=== PATIENT | male | born 1930 | race Caucasian/White ===

== ENCOUNTER 2016-07-24 20:02 | Inpatient (IN) | payer MEDICARE ==
[2016-07-24] MEDS ORDERED: NS 0.9% 1000 ML* 1,000 ML IV ONE (21:25)
[2016-07-24 21:36] LABS: Hematocrit 39 % (42-52); Mean Corpuscular HGB Conc 34 g/dl (31-36); Mean Corpuscular Hemoglobin 28 pg (27-31); Mean Corpuscular Volume 83 fL (80-94); Mean Platelet Volume 9 um3 (7.4-10.4); Red Blood Count 4.65 10^6/ul (4.0-5.4); Red Cell Distribution Width 16 % (10.5-15)
[2016-07-24] MEDS ORDERED: Aspirin EC TAB* 325 MG PO ONE (21:37)
[2016-07-24] MEDS ORDERED: Piperac/Tazob 3.375 gm in NS* 3.375 GM/100 ML BAG IVPB ONE (21:41)
[2016-07-24 21:50] LABS: BUN/Creatinine Ratio 12.2 (8-20); Calcium 9.1 mg/dL (8.6-10.3); EGFR African American 51.5 (>60); Globulin 2.9 g/dL (2-4); Total Bilirubin 0.7 mg/dL (0.2-1.0); Total Protein 6.9 g/dL (6.4-8.9)
[2016-07-24 21:53] LABS: Potassium 3.7 mmol/L (3.5-5.0)
[2016-07-24 21:54] LABS: Troponin I 0.83 ng/mL (<0.04)
[2016-07-24] MEDS: Heparin VIAL(*) 5000 UNITS/ML VIAL (FIVE THOUSAND) IV SCH (22:30)
[2016-07-24] MEDS: Heparin DRIP 25,000 UNITS(*) 25,000 UNITS/500 ML BAG IVPB SCH (22:31)
--- NOTE | 2016-07-24 22:40 | RAD ---
Indication: Shortness of breath. Single frontal view of the chest performed at 2156 hours was reviewed. Comparison is made with previous exam dated January 29, 2012. No mediastinal shift is noted. Heart is normal size and configuration. Right upper lobe and right lower lobe airspace disease is noted consistent with pneumonia. No pleural fluid is identified. IMPRESSION: Right upper lobe and right lower lobe airspace disease consistent with pneumonia.
[2016-07-24] MEDS ORDERED: Furosemide IV* 10 MG/ML VIAL (40 MG) ONE (23:35)
[2016-07-24] MEDS: Furosemide IV* 10 MG/ML VIAL (40 MG) IV SLOW PU SCH (23:41)
[2016-07-25] MEDS ORDERED: Morphine INJ* 2 MG/ML 1 ML CARPUJECT IV ONE (00:59)
[2016-07-25] MEDS ORDERED: Azithromycin IV(*) 500 MG in NS 0.9% 250 ML* 250 ML IVPB SCH (01:00)
[2016-07-25] MEDS: cefTRIAXone VIAL(*) 1,000 MG in NS 0.9% 50 ML* 50 ML IVPB SCH (02:34)
[2016-07-25 05:45] LABS: Hematocrit 39 % (42-52); Hemoglobin 12.9 g/dl (14.0-18.0); Mean Corpuscular HGB Conc 33 g/dl (31-36); Mean Corpuscular Hemoglobin 27 pg (27-31); Mean Corpuscular Volume 83 fL (80-94); Mean Platelet Volume 9 um3 (7.4-10.4); Red Blood Count 4.71 10^6/ul (4.0-5.4); Red Cell Distribution Width 16 % (10.5-15); White Blood Count 11.8 10^3/ul (3.5-10.8)
--- NOTE | 2016-07-25 07:55 | HP ---
HISTORY AND PHYSICAL: DATE OF ADMISSION: 07/24/16 CHIEF COMPLAINT: Shortness of breath. HISTORY OF PRESENT ILLNESS: The patient is an 86-year-old gentleman who had been short of breath for several days, but then increased significantly tonight. It became so bad he had to come to the ER. His has a cough that is semi-productive. He does not have any green or brown phlegm; it is mostly clear. He walked down the schmidt and has to hold on the things because he feels so unsteady. He has also been increasingly mentally confused. He has no chest pain, but he felt cold all day yesterday. He has noticed no increased weight gain and no swelling in his legs. In the ED, the patient was evaluated and found to have findings on x-ray possibly consistent with pneumonia, but an elevated BNP and elevated troponins as well. PAST MEDICAL HISTORY: BPH and TURP. CURRENT MEDICATIONS: Include: 1. PreserVision. 2. Alphagan eye drops. 3. Multivitamin. SOCIAL HISTORY: He quit tobacco in the 1970s. He has no alcohol or recreational drug use. 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 He has a common-law , Preethi Holman, who is his health care proxy. He has 2 children. REVIEW OF SYSTEMS: A 14-point review of systems was completed with the patient. All pertinent positives and negatives are in the history of present illness. Otherwise, it is negative. PHYSICAL EXAMINATION GENERAL: A pleasant gentleman lying in bed, in no acute distress. VITAL SIGNS: Blood pressure 131/79, pulse ox 91%, respiratory rate 18 breaths per minute, heart rate 100 beats per minute, and temperature 98.9 degrees. HEENT: Normocephalic, atraumatic. Pupils equal, round, and reactive to light. Mucous membranes moist. NECK: Supple. No JVD, bruits, palpable thyroid, or lymphadenopathy. CHEST: He has decreased breath sounds and crackles at the bases. CARDIOVASCULAR: S1 and S2 appreciated. Increased rate, regular rhythm. ABDOMEN: Positive bowel sound all in 4 quadrants. Soft, nontender, and nondistended. No hepatosplenomegaly. EXTREMITIES: No cyanosis, clubbing, or edema; +2 peripheral pulses bilaterally. NEURO: Alert and oriented x3. Moves all extremities. SKIN: No rashes or abnormalities. DIAGNOSTIC STUDIES/LAB DATA: Sodium 138, potassium 3.7, chloride 107, CO2 19, BUN 20, creatinine 1.64, glucose 191. Troponin 0.83. BNP 1720. WBC 12, hemoglobin 13, hematocrit 39, platelets 303. Iron 1.04. Chest x-ray was interpreted by radiology as right upper lobe and right lower lobe air space disease consistent with pneumonia. EKG shows sinus tachycardia at a rate of 114 beats per minute, normal axis, and ST depressions at V4 through V6. ASSESSMENT AND PLAN: 1. Elevated troponin: I think this may be secondary to congestive heart failure. He has an elevated BNP and his chest x-ray could be consistent with heart failure. I will place him on Lasix 40 IV daily. Get a chest thoracic echo. Do strict I's and O's and daily weights. Hopefully, he will diurese quite a bit and feel much better. 2. Respiratory failure: Could be secondary to pneumonia, although I think less likely. I will put him on Rocephin and Zithromax. Check sputum C and S, urine for Legionella, pneumococcal antigen, and monitor. 3. Benign prostatic hyperplasia: We will hold off on a Mendoza catheter for now as the patient had a lot of troubles with one last time and will only put it in if absolutely necessary, and ask Urology for their help. 4. FEN: Low-sodium diet. 5. DVT prophylaxis: Heparin drip. 6. Code status: The patient is a full code, but a DNI. TIME SPENT: Over 80 minutes were spent on this H and P, more than 40 minutes of which were spent in direct atkw-or-bohj contact with the patient, evaluation , physical exam, counseling, and coordination of care. CC: Thierno Hayes MD * [id number]/CPS #: [id number] MTDD
[2016-07-25 07:58] LABS: HDL Cholesterol 29.9 mg/dL
[2016-07-25 08:02] LABS: Troponin I 3.52 ng/mL (<0.04)
--- NOTE | 2016-07-25 09:35 | ECHO ---
Patient: BELKIS HINES [facility] Rec#: [id number] : 1930 Date: 07/25/2016 Age: 86y Height: 187.96 cm / 74.0 in Weight: 68.04 kg / 150.0 lbs Sex: M BSA: 1.92 Room#: [facility] Admit Date#: 07/24/2016 Type: Inpatient Referring: Steve Hameed MD Reading: Mitch Osoiro DO Commercial Sales Consultant: Jolie Foote [facility] Transthoracic Echocardiogram Indication: CHF BP: 113/69 HR: 94 Rhythm: NSR with PACs Findings History: CHF,right upper and lower lobe pneumonia. Currently on Bipap. Technical Comments: The study is technically limited due to patient being on BIPAP during study. Completed at 0812. Left Ventricle: The left ventricular chamber size is normal. Mild concentric left ventricular hypertrophy is observed. There are multiple regional wall motion abnormalities. There is severely decreased left ventricular systolic function. The estimated ejection fraction is 20-25%. Abnormal left ventricular diastolic function is observed. Left Atrium: The left atrium is mildly dilated. Right Ventricle: The right ventricular chamber size and systolic function are within normal limits. Right Atrium: The right atrial cavity size is normal. Aortic Valve: The aortic valve is trileaflet. There is evidence of aortic sclerosis without stenosis. There is mild aortic regurgitation. There is no evidence of aortic stenosis. Mitral Valve: The mitral valve leaflets are mildly thickened. There is mild mitral regurgitation. There is no evidence of mitral stenosis. Tricuspid Valve: The tricuspid valve leaflets are normal. There is mild to moderate tricuspid regurgitation. There is evidence of moderate pulmonary hypertension. There is no tricuspid stenosis. Pulmonic Valve: The pulmonic valve appears normal. There is trace to mild pulmonic regurgitation. There is no pulmonic stenosis. Pericardium: There is no significant pericardial effusion. Aorta: There is mild dilatation of the ascending aorta. The aortic arch is not well visualized. There is mild dilatation of the aortic root. Pulmonary Artery: The main pulmonary artery is not well visualized. Venous: Unable to accurately comment on the size collapsibility of the IVC as the patient in known to be on mechanical ventilation. In this case, BIPAP. Conclusions The left ventricular chamber size is normal. Mild concentric left ventricular hypertrophy is observed. There is severely decreased left ventricular systolic function with an estimated LV ejection fraction of 20-25%. There are multiple regional wall motion abnormalities. The left atrium is mildly dilated. The right ventricular chamber size and systolic function are within normal limits. There is mild to moderate tricuspid regurgitation. There is evidence of moderate pulmonary hypertension. No prior studies available for comparison at time of interpretation Measurements Name Value Normal Range RVIDd (AP) 2D 2.4 cm (0.9 - 2.6) RVDdMajor (2D) 3.1 cm (2.2 - 4.4) RAd ISD 4CH 4.2 cm (3.4 - 4.9) RA (A4C)W 3.3 cm (2.9 - 4.6) IVSd (2D) 1.6 cm (0.6 - 1) LVPWd (2D) 1.1 cm (0.6 - 1) LVIDd (2D) 5.1 cm (3.6 - 5.4) LVIDs (2D) 4.5 cm - LV FS (2D) 11 % (25 - 45) Aortic Annulus 2.4 cm (1.4 - 2.6) Ao root diameter (2D) 4 cm (2.1 - 3.5) Ascending Ao 3.8 cm (2.1 - 3.4) LA dimension (AP) 2D 4.2 cm (2.3 - 3.8) LAd ISD 4CH 5.1 cm (2.9 - 5.3) LA ISD 4CH W 4.5 cm (2.5 - 4.5) Name Value Normal Range LA ESV SP 4CH (A/L) 58 ml - LA ESV SP 2CH (A/L) 81 ml - LA ESV BP (A/L) 75 ml - LA ESV BP (A/L) index 38.8 ml/m2 - LA ESV SP 4CH (MOD) 55 ml - LA ESV SP 2CH (MOD) 72 ml - Name Value Normal Range MV E-wave Vmax 0.6 m/sec - MV deceleration time 82 msec - MV A-wave Vmax 0.7 m/sec - MV E:A ratio 0.88 ratio - LV septal e' Vmax 0.04 m/sec - LV lateral e' Vmax 0.05 m/sec - LV E:e' septal ratio 15 ratio - LV E:e' lateral ratio 12 ratio - Name Value Normal Range AV Vmax 1 m/sec - AV VTI 17 cm - AV peak gradient 3.86 mmHg - AV mean gradient 1.49 mmHg - LVOT Vmax 0.8 m/sec - LVOT VTI 12.7 cm - LVOT peak gradient 2.43 mmHg - LVOT mean gradient 0.88 mmHg - AR PHT 442 msec - AR peak gradient 33.33 mmHg - Name Value Normal Range TR Vmax 3.8 m/sec - TR peak gradient 58 mmHg - RVSP 60 mmHg - IVC diameter 2 cm - Name Value Normal Range PV Vmax 0.6 m/sec - PV peak gradient 1.51 mmHg -
[2016-07-25] MEDS: Furosemide IV* 10 MG/ML VIAL (40 MG) IV SLOW PU SCH (09:46)
[2016-07-25] MEDS: Aspirin Low Dose CHEW TAB* 81 MG PO SCH (09:46)
[2016-07-25] MEDS ORDERED: nitroGLYCERIN DRIP* 250 ML ONE (11:50)
--- NOTE | 2016-07-25 11:59 | PN ---
Subjective Date of Service: 07/25/16 Interval History: He denies most c/o. Objective Active Medications: Aspirin (Aspirin Low Dose Tab*) 81 mg PO DAILY [facility] Last Admin: 07/25/16 09:46 Dose: 81 mg Atorvastatin Calcium (Lipitor*) 20 mg PO 1700 [facility] Brimonidine Tartrate (Alphagan P 0.1% (Nf)) 1 drop LEFT EYE BID [facility] Furosemide (Lasix Iv*) 40 mg IV SLOW PU DAILY [facility] Last Admin: 07/25/16 09:46 Dose: 40 mg Heparin Sodium (Porcine) (Heparin Vial(*)) 0 units IV .PER PROTOCOL SLIM PRN Reason: Protocol Last Admin: 07/24/16 22:30 Dose: 5,100 units Heparin Sodium/Dextrose (Heparin Drip 25,000 Units(*)) 25,000 units in 500 mls @ 0 mls/hr IVPB .PER RATE SLIM; Per Protocol PRN Reason: Protocol Last Admin: 07/24/16 22:31 Dose: 24 mls/hr Ceftriaxone Sodium 1,000 mg/ (Sodium Chloride) 50 mls @ 200 mls/hr IVPB Q24H [facility] Last Admin: 07/25/16 02:34 Dose: 200 mls/hr Azithromycin 500 mg/ Sodium (Chloride) 250 mls @ 250 mls/hr IVPB Q24H [facility] Last Admin: 07/25/16 02:27 Dose: 250 mls/hr Nitroglycerin/Dextrose 25,000 (mcg/ IV Solution) 250 mls @ 3 mls/hr IV .( Initial Rate) SLIM; 5 MCG/MIN PRN Reason: Protocol Vital Signs 07/24/16 07/24/16 07/25/16 23:30 23:48 00:00 Temperature Pulse Rate 114 128 132 Respiratory 24 24 33 Rate Blood Pressure 154/105 174/123 (mmHg) O2 Sat by Pulse 88 82 100 Oximetry 07/25/16 07/25/16 07/25/16 00:01 00:15 00:33 Temperature Pulse Rate 133 130 129 Respiratory 29 34 29 Rate Blood Pressure 175/94 137/99 154/96 (mmHg) O2 Sat by Pulse 92 100 100 Oximetry 07/25/16 07/25/16 07/25/16 00:45 01:00 01:04 Temperature Pulse Rate 128 108 Respiratory 26 23 30 Rate Blood Pressure 175/97 140/76 (mmHg) O2 Sat by Pulse 98 97 Oximetry 07/25/16 07/25/16 07/25/16 01:15 01:30 01:35 Temperature Pulse Rate 100 99 97 Respiratory 19 19 20 Rate Blood Pressure 125/65 124/71 (mmHg) O2 Sat by Pulse 93 95 95 Oximetry 07/25/16 07/25/16 07/25/16 01:44 01:45 01:54 Temperature Pulse Rate 100 109 Respiratory 21 25 Rate Blood Pressure 138/86 132/74 (mmHg) O2 Sat by Pulse 97 100 Oximetry 07/25/16 07/25/16 07/25/16 02:00 02:06 02:26 Temperature 97.9 F Pulse Rate 133 129 123 Respiratory 24 23 23 Rate Blood Pressure 172/90 172/90 (mmHg) O2 Sat by Pulse 100 100 100 Oximetry 07/25/16 07/25/16 07/25/16 02:30 02:45 03:00 Temperature Pulse Rate 116 100 103 Respiratory 27 16 17 Rate Blood Pressure 139/60 130/90 119/71 (mmHg) O2 Sat by Pulse 100 97 99 Oximetry 07/25/16 07/25/16 07/25/16 03:13 03:30 04:00 Temperature Pulse Rate 123 99 101 Respiratory 23 16 21 Rate Blood Pressure 108/62 118/68 (mmHg) O2 Sat by Pulse 100 97 100 Oximetry 07/25/16 07/25/16 07/25/16 04:30 05:00 05:14 Temperature Pulse Rate 93 93 96 Respiratory 17 16 14 Rate Blood Pressure 119/70 118/67 (mmHg) O2 Sat by Pulse 99 96 100 Oximetry 07/25/16 07/25/16 07/25/16 05:30 06:00 06:30 Temperature Pulse Rate 90 88 93 Respiratory 15 15 15 Rate Blood Pressure 120/66 113/69 129/67 (mmHg) O2 Sat by Pulse 98 99 99 Oximetry 07/25/16 07/25/16 07/25/16 07:00 07:30 08:00 Temperature 99.9 F Pulse Rate 110 105 97 Respiratory 20 20 16 Rate Blood Pressure 138/76 139/69 128/75 (mmHg) O2 Sat by Pulse 100 100 98 Oximetry 07/25/16 07/25/16 07/25/16 08:30 09:00 09:30 Temperature Pulse Rate 127 106 57 Respiratory 22 23 25 Rate Blood Pressure 151/98 136/99 131/72 (mmHg) O2 Sat by Pulse 100 100 83 Oximetry 07/25/16 07/25/16 07/25/16 10:00 11:00 11:01 Temperature 98.5 F Pulse Rate 125 110 Respiratory 30 27 Rate Blood Pressure 161/83 157/95 (mmHg) O2 Sat by Pulse 87 91 Oximetry Oxygen Devices in Use Now: - - VapoTherm at 40 L/min Appearance: Alert, partly up in ICU bed. In good spirits. Looks comfortable. Eyes: No Scleral Icterus Neck: No Thyroid Enlargement, Masses, - - JVD at 30 degrees. Respiratory: Symmetrical Chest Expansion and Respiratory Effort, Clear to Auscultation, Clear to Percussion, - Cardiovascular: NL Sounds; No Murmurs; No JVD, No Edema, - - rapid rate Extremities: No Edema, No Clubbing, Cyanosis, - Skin: No Rash or Ulcers, No Nodules or Sclerosis, - Neurological: NL Sensation - Disoriented. Moves all limbs. No tremor. Result Diagrams: 07/25/16 04:25 07/24/16 20:16 Microbiology and Other Data: Microbiology 07/25/16 06:05 Legionella Urinary Antigen - Final Urine Negative Legionella Streptococcus pneumoniae Ag Screen - Final Negative S. pneumo Antigen Assess/Plan/Problems-Billing Assessment: - Patient Problems (1) ACS (acute coronary syndrome) Current Visit: Yes Status: Acute Code(s): I24.9 - ACUTE ISCHEMIC HEART DISEASE, UNSPECIFIED SNOMED Code(s): 948006356 Comment: ASA, statin, heparin, NTG drip, morphine ordered. Dr. Osorio to consult. Prognosis guarded due to severe cardiomyopathy. (2) Dementia Current Visit: Yes Status: Acute Code(s): F03.90 - UNSPECIFIED DEMENTIA WITHOUT BEHAVIORAL DISTURBANCE SNOMED Code(s): 07194473 Comment: Long hx progressive memory loss, confusion, worse since admission. Cannot r/o some degree of delirium. Haloperidol prn severe agitation. Morphine may help with milder sx's. (3) Glaucoma Current Visit: Yes Status: Acute Code(s): H40.9 - UNSPECIFIED GLAUCOMA SNOMED Code(s): 08275975 Comment: Continue brimonidine.
[2016-07-25] MEDS ORDERED: nitroGLYCERIN DRIP* 25,000 MCG in PREMIX* 0 ML IV SCH (12:00)
[2016-07-25] MEDS ORDERED: Furosemide IV* 10 MG/ML VIAL (40 MG) IV ONE (12:05)
--- NOTE | 2016-07-25 12:46 | CONSULT ---
Subjective Date of Service: 07/25/16 Interval History: Admission Date: 07/24/16 Provider: Hospitalist DATE OF Consult: 07/25/16 PMD: Dr. Castro CHIEF COMPLAINT: Shortness of breath. Reason for consult: Acute IL, CHF HISTORY OF PRESENT ILLNESS: Mr. Hernandez is an 86-year-old man who I was asked to evaluated by Dr. Szymanski in the ICU. He is currently agitated and unable to provide a history so the history was obtained from medical chart, patients significant other who is present (along with sister). There is no reported cardiac history. Lavelle has been dyspneic for at least several days with increased weight and clear minimally productive cough. There has been no chest pain, palpitations, syncope or edema. He was diagnosed with CHF and appropriately given IV lasix. He ruled in for ACS with serial troponins and is currently on aspirin and a heparin gtt. His daughter lives in [place] and is due to come later today. Patient is hypertensive. He has baseline confusion by can perform all ADLs PAST MEDICAL HISTORY: BPH and TURP. SOCIAL HISTORY: He quit tobacco in the 1970s. He has no alcohol or recreational drug use. 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 He has a common-law , Preethi Holman, who is his health care proxy. He has 2 children. family hx: noncontributory allergies: nkda Medications Active Medications: Aspirin (Aspirin Low Dose Tab*) 81 mg PO DAILY [facility] Last Admin: 07/25/16 09:46 Dose: 81 mg Atorvastatin Calcium (Lipitor*) 20 mg PO 1700 [facility] Brimonidine Tartrate (Alphagan P 0.1% (Nf)) 1 drop LEFT EYE BID [facility] Furosemide (Lasix Iv*) 40 mg IV SLOW PU DAILY [facility] Last Admin: 07/25/16 09:46 Dose: 40 mg Haloperidol (Haldol Tab*) 0.5 mg PO Q4H PRN PRN Reason: AGITATION - SEVERE Heparin Sodium (Porcine) (Heparin Vial(*)) 0 units IV .PER PROTOCOL SLIM PRN Reason: Protocol Last Admin: 07/24/16 22:30 Dose: 5,100 units Heparin Sodium/Dextrose (Heparin Drip 25,000 Units(*)) 25,000 units in 500 mls @ 0 mls/hr IVPB .PER RATE SLIM; Per Protocol PRN Reason: Protocol Last Admin: 07/24/16 22:31 Dose: 24 mls/hr Ceftriaxone Sodium 1,000 mg/ (Sodium Chloride) 50 mls @ 200 mls/hr IVPB Q24H [facility] Last Admin: 07/25/16 02:34 Dose: 200 mls/hr Nitroglycerin/Dextrose 25,000 (mcg/ IV Solution) 250 mls @ 3 mls/hr IV .( Initial Rate) SLIM; 5 MCG/MIN PRN Reason: Protocol Last Admin: 07/25/16 11:54 Dose: 3 mls/hr Home Medications: Brainstrong Adult (Dha) 1 tab PO DAILY 07/25/16 [History] Brimonidine P 0.1%(NF) [Alphagan P 0.1% (NF)] 1 drop LEFT EYE BID 07/25/16 [ History Confirmed 07/25/16] Multiple Vitamin [Multi Vitamin] 1 tab PO DAILY 07/25/16 [History Confirmed ] Preservision 1 tab PO BID 07/25/16 [History] Review of Systems - Measurements Intake and Output: Intake and Output Last 24 Hours 07/23/16 07/24/16 07/25/16 07/26/16 06:59 06:59 06:59 06:59 Intake Total 554 Output Total 900 250 Balance -346 -250 Weight 149 lb 4.047 oz Intake: IV Fluids 283 ABX - AZITHROMYCIN 250 NS KVO 33 IVPB 59 NS KVO 59 Heparin 212 Output: Urine 900 250 - Review of Systems Review of Systems Statement: unable to obtain Objective Vital Signs: Temp Pulse Resp BP Pulse Ox 98.5 F 110 27 157/95 91 07/25/16 11:01 07/25/16 11:00 07/25/16 11:00 07/25/16 11:00 07/25/16 11:00 Oxygen Devices in Use Now: - - VapoTherm at 40 L/min Appearance: appears ill and distressed with tachypnea and labor breathing Ears/Nose/Mouth/Throat: Clear Oropharnyx, Mucous Membranes Moist Neck: - - + jvd Respiratory: - - patient with tachypnea and increased work of breathing, no obvious rales Cardiovascular: No Edema, - - tachycardic, regular, no significant murmur Abdominal: NL Sounds; No Tenderness; No Distention Skin: No Rash or Ulcers Neurological: - - not oriented at all Laboratory Results: 07/25/16 04:25 INR (Anticoag Therapy) 1.04 (0.89-1.11) 07/24/16 20:16 APTT 130.8 seconds (26.0-36.3) H* 07/25/16 06:05 Total Bilirubin 0.70 mg/dL (0.2-1.0) 07/24/16 20:16 AST 28 U/L (13-39) 07/24/16 20:16 ALT 11 U/L (7-52) 07/24/16 20:16 Alkaline Phosphatase 67 U/L (34-104) 07/24/16 20:16 CK-MB (CK-2) 51.7 ng/mL (0.6-6.3) H 07/25/16 04:25 B-Natriuretic Peptide 1720 pg/mL (-100) H 07/24/16 20:16 Total Protein 6.9 g/dL (6.4-8.9) 07/24/16 20:16 Albumin 4.0 g/dL (3.2-5.2) 07/24/16 20:16 Globulin 2.9 g/dL (2-4) 07/24/16 20:16 Albumin/Globulin Ratio 1.4 (1-3) 07/24/16 20:16 Triglycerides 666 mg/dL 07/25/16 04:25 Cholesterol 270 mg/dL 07/25/16 04:25 LDL Cholesterol mg/dL 07/25/16 04:25 HDL Cholesterol 29.9 mg/dL 07/25/16 04:25 07/25/16 07/25/16 01:35 04:25 Troponin I 2.19 H* 3.52 H* creatinine in 2016 was 2.1 Diagnostic Imaging: cxr: + pulmonary edema TTE: LVEF 20-25% with multiple WMA, no significant valvular abnormalities note tele: no ventricular arrhythmias ekg 07/25/2016: ST, ischemic anterolateral ST depression Assessment/Plan In summary, Mr. Hernandez is an 86 year old man with baseline memory loss, remote tobacco and CKD use who presents with ADHF in the setting of an acute IL and LVEF 20-25%, cTnI 5.7 and rising. Course complicated by delirium. - Would restart bipap. Reportedly DNI status - Continue heparin gtt - Continue aspirin 81 mg PO daily - Give plavix 600 mg PO x 1 now then 75 mg PO daily (ordered) - Start nitroglycerine gtt to titrate SBP to < 130 - Continue IV PRN furosemide to keep I/O negative, trend I/O, BMP/Mg and replace lytes as needed - Hold on beta-isidoro for now - Will likely start afterload reduction soon - Would consider d/c antibiotics - Significant other and sister present indicate he would not want invasive management of his condition, will wait until daughter arrives and discuss further. - - Prognosis guarded. Thank you for allowing me to participate in the cardiovascular care of this patient. Please do not hesitate to contact me with questions or concerns.
[2016-07-25 12:50] LABS: Troponin I 5.69 ng/mL (<0.04)
[2016-07-25] MEDS ORDERED: fentaNYL* 50 MCG/ML 2 ML VIAL (100 MCG VIAL) IV SLOW PU PRN (13:12)
[2016-07-25] MEDS ORDERED: Clopidogrel TAB* 300 MG PO ONE (13:19)
[2016-07-25] MEDS ORDERED: Haloperidol INJ IV/IM* 5 MG/ML AMP IV SLOW PU PRN (14:56)
[2016-07-25] MEDS ORDERED: Haloperidol INJ IV/IM* 5 MG/ML AMP ONE (14:58)
[2016-07-25] MEDS ORDERED: Atorvastatin* 20 MG TAB PO SCH (17:00)
[2016-07-25] MEDS: fentaNYL* 50 MCG/ML 2 ML VIAL (100 MCG VIAL) IV SLOW PU PRN ×3 (17:47→23:33)
[2016-07-25] MEDS: Atorvastatin* 80 MG TAB PO SCH (17:47)
[2016-07-25] MEDS: Haloperidol INJ IV/IM* 5 MG/ML AMP IV SLOW PU PRN ×2 (19:55→23:32)
[2016-07-25] MEDS: PTO: Brimonidine P 0.1%(NF) 1 DROP BTL LEFT EYE SCH (22:33)
[2016-07-25] MEDS: Heparin DRIP 25,000 UNITS(*) 25,000 UNITS/500 ML BAG IVPB SCH (22:37)
[2016-07-26] MEDS: cefTRIAXone VIAL(*) 1,000 MG in NS 0.9% 50 ML* 50 ML IVPB SCH (02:12)
[2016-07-26] MEDS: fentaNYL* 50 MCG/ML 2 ML VIAL (100 MCG VIAL) IV SLOW PU PRN ×2 (03:52→16:41)
[2016-07-26] MEDS: Haloperidol INJ IV/IM* 5 MG/ML AMP IV SLOW PU PRN ×2 (03:52→16:41)
[2016-07-26] MEDS ORDERED: fentaNYL* 50 MCG/ML 2 ML VIAL (100 MCG VIAL) IV ONE (06:00)
[2016-07-26] MEDS ORDERED: Haloperidol INJ IV/IM* 5 MG/ML AMP IV SLOW PU ONE (06:00)
[2016-07-26 06:02] LABS: Hematocrit 35 % (42-52); Hemoglobin 11.5 g/dl (14.0-18.0); Mean Corpuscular HGB Conc 33 g/dl (31-36); Mean Corpuscular Hemoglobin 27 pg (27-31); Mean Corpuscular Volume 82 fL (80-94); Mean Platelet Volume 9 um3 (7.4-10.4); Red Blood Count 4.27 10^6/ul (4.0-5.4); Red Cell Distribution Width 16 % (10.5-15); White Blood Count 11.2 10^3/ul (3.5-10.8)
[2016-07-26 06:29] LABS: EGFR African American 44.5 (>60); EGFR Non-African American 34.6 (>60); Magnesium 1.8 mg/dL (1.9-2.7)
[2016-07-26] MEDS ORDERED: Furosemide IV* 10 MG/ML 2 ML VIAL (20 MG) ONE (06:30)
--- NOTE | 2016-07-26 07:46 | PN ---
Subjective Date of Service: 07/26/16 Interval History: Pt offers no c/o. His memory seems to be very poor. Objective Active Medications: Aspirin (Aspirin Low Dose Tab*) 81 mg PO DAILY [facility] Last Admin: 07/25/16 09:46 Dose: 81 mg Atorvastatin Calcium (Lipitor*) 80 mg PO 1700 [facility] Last Admin: 07/25/16 17:47 Dose: 80 mg Brimonidine Tartrate (Alphagan P 0.1% (Nf)) 1 drop LEFT EYE BID [facility] Last Admin: 07/25/16 22:33 Dose: 1 juarez Clopidogrel Bisulfate (Plavix Tab*) 75 mg PO DAILY [facility] Fentanyl Citrate (Fentanyl*) 25 mcg IV SLOW PU Q1H PRN PRN Reason: dyspnea, pain Last Admin: 07/26/16 03:52 Dose: 25 mcg Haloperidol (Haldol Tab*) 0.5 mg PO Q4H PRN PRN Reason: AGITATION - SEVERE Haloperidol Lactate (Haldol Inj Iv/Im*) 1 mg IV SLOW PU Q1H PRN PRN Reason: AGITATION Last Admin: 07/26/16 03:52 Dose: 1 mg Heparin Sodium (Porcine) (Heparin Vial(*)) 0 units IV .PER PROTOCOL SLIM PRN Reason: Protocol Last Admin: 07/24/16 22:30 Dose: 5,100 units Heparin Sodium/Dextrose (Heparin Drip 25,000 Units(*)) 25,000 units in 500 mls @ 0 mls/hr IVPB .PER RATE SLIM; Per Protocol PRN Reason: Protocol Last Admin: 07/25/16 22:37 Dose: 20 mls/hr Ceftriaxone Sodium 1,000 mg/ (Sodium Chloride) 50 mls @ 200 mls/hr IVPB Q24H [facility] Last Admin: 07/26/16 02:12 Dose: 200 mls/hr Nitroglycerin/Dextrose 25,000 (mcg/ IV Solution) 250 mls @ 3 mls/hr IV .( Initial Rate) SLIM; 5 MCG/MIN PRN Reason: Protocol Last Admin: 07/25/16 11:54 Dose: 3 mls/hr Vital Signs 07/25/16 07/25/16 07/25/16 08:00 08:30 09:00 Temperature 99.9 F Pulse Rate 97 127 106 Respiratory 16 22 23 Rate Blood Pressure 128/75 151/98 136/99 (mmHg) O2 Sat by Pulse 98 100 100 Oximetry 07/25/16 07/25/16 07/25/16 09:30 10:00 11:00 Temperature Pulse Rate 57 125 110 Respiratory 25 30 27 Rate Blood Pressure 131/72 161/83 157/95 (mmHg) O2 Sat by Pulse 83 87 91 Oximetry 07/25/16 07/25/16 07/25/16 11:01 12:00 12:22 Temperature 98.5 F Pulse Rate 125 95 Respiratory 28 18 Rate Blood Pressure 175/70 125/62 (mmHg) O2 Sat by Pulse 86 89 Oximetry 07/25/16 07/25/16 07/25/16 13:00 14:00 15:00 Temperature Pulse Rate 97 97 133 Respiratory 18 16 29 Rate Blood Pressure 113/61 128/91 (mmHg) O2 Sat by Pulse 89 90 87 Oximetry 07/25/16 07/25/16 07/25/16 15:01 15:13 16:00 Temperature 98.2 F Pulse Rate 132 98 Respiratory 28 28 23 Rate Blood Pressure 146/92 110/58 (mmHg) O2 Sat by Pulse 94 98 Oximetry 07/25/16 07/25/16 07/25/16 17:00 17:01 17:47 Temperature Pulse Rate 59 75 Respiratory 24 20 22 Rate Blood Pressure 150/87 (mmHg) O2 Sat by Pulse 93 96 Oximetry 07/25/16 07/25/16 07/25/16 17:48 18:00 19:00 Temperature Pulse Rate 98 121 Respiratory 19 27 Rate Blood Pressure 153/129 115/64 (mmHg) O2 Sat by Pulse 88 90 88 Oximetry 07/25/16 07/25/16 07/25/16 20:00 20:53 21:00 Temperature 100.5 F Pulse Rate 102 127 Respiratory 14 24 28 Rate Blood Pressure 126/60 157/112 (mmHg) O2 Sat by Pulse 94 85 Oximetry 07/25/16 07/25/16 07/25/16 22:00 22:20 23:00 Temperature Pulse Rate 62 95 Respiratory 23 12 15 Rate Blood Pressure 107/91 119/60 (mmHg) O2 Sat by Pulse 88 96 Oximetry 07/25/16 07/25/16 07/26/16 23:07 23:33 00:00 Temperature 99.0 F Pulse Rate 94 94 Respiratory 15 24 11 Rate Blood Pressure (mmHg) O2 Sat by Pulse 95 95 Oximetry 07/26/16 07/26/16 07/26/16 00:01 01:00 02:00 Temperature Pulse Rate 94 86 81 Respiratory 12 16 15 Rate Blood Pressure 112/54 103/47 106/51 (mmHg) O2 Sat by Pulse 94 97 98 Oximetry 07/26/16 07/26/16 07/26/16 03:00 03:52 04:00 Temperature 99.2 F Pulse Rate 92 124 Respiratory 15 21 26 Rate Blood Pressure 134/65 (mmHg) O2 Sat by Pulse 96 89 Oximetry 07/26/16 07/26/16 07/26/16 04:55 04:58 05:00 Temperature Pulse Rate 58 58 73 Respiratory 24 25 24 Rate Blood Pressure 149/108 140/117 141/116 (mmHg) O2 Sat by Pulse 81 87 82 Oximetry 07/26/16 07/26/16 05:42 06:00 Temperature Pulse Rate 87 Respiratory 22 13 Rate Blood Pressure 116/52 (mmHg) O2 Sat by Pulse 90 Oximetry Oxygen Devices in Use Now: - - VapoTherm at 40 L/min Appearance: Alert, sitting up in ICU bed. Neutral affect. Cooperative but passive. Looks comfortable. Eyes: No Scleral Icterus Neck: No Thyroid Enlargement, Masses, - - JVD at 30 degrees Respiratory: Symmetrical Chest Expansion and Respiratory Effort - Rales L > R base Extremities: No Edema, No Clubbing, Cyanosis, - Skin: No Rash or Ulcers, No Nodules or Sclerosis, - Neurological: NL Sensation - Stated he lived in [place], unable to name the street, give his age, or give his sister's name. Result Diagrams: 07/26/16 05:50 07/26/16 05:50 Microbiology and Other Data: Microbiology 07/25/16 06:05 Legionella Urinary Antigen - Final Urine Negative Legionella Streptococcus pneumoniae Ag Screen - Final Negative S. pneumo Antigen Assess/Plan/Problems-Billing Assessment: - Patient Problems (1) ACS (acute coronary syndrome) Current Visit: Yes Status: Acute Code(s): I24.9 - ACUTE ISCHEMIC HEART DISEASE, UNSPECIFIED SNOMED Code(s): 741685085 Comment: ASA, statin, heparin, NTG drip, morphine ordered. His creatinine and BUN antonio with diuresis. BNP for 07/26 pending. Prognosis is poor with severe cardiomyopathy, EDNA, advanced dementia. (2) Dementia Current Visit: Yes Status: Acute Code(s): F03.90 - UNSPECIFIED DEMENTIA WITHOUT BEHAVIORAL DISTURBANCE SNOMED Code(s): 69620981 Comment: Long hx progressive memory loss, confusion, worse since admission. Cannot r/o some degree of delirium. Haloperidol prn severe agitation. Morphine may help with milder sx's. No improvement as of 07/26. I will discuss end of life care with his daughter when she arrives. (3) Glaucoma Current Visit: Yes Status: Acute Code(s): H40.9 - UNSPECIFIED GLAUCOMA SNOMED Code(s): 57107042 Comment: Continue brimonidine.
[2016-07-26] MEDS ORDERED: Magnesium Sulfate 2 GM IV* 2 GM/50 ML BAG IVPB ONE (08:32)
[2016-07-26] MEDS: Clopidogrel TAB* 75 MG PO SCH (08:34)
[2016-07-26] MEDS: PTO: Brimonidine P 0.1%(NF) 1 DROP BTL LEFT EYE SCH ×2 (08:35→21:38)
[2016-07-26] MEDS: Aspirin Low Dose CHEW TAB* 81 MG PO SCH (08:35)
--- NOTE | 2016-07-26 08:52 | PN ---
Subjective Date of Service: 07/26/16 Interval History: f/u [place], CHF Agitated overnight multiple doses of fentanyl and haldol Not at all oriented this AM, denies any CP or dyspnea but appears subjectively dyspneic Had 750 cc urinary retention now has daniels catheter, adequate UOP tele: no arrhythmias Medications Active Medications: Aspirin (Aspirin Low Dose Tab*) 81 mg PO DAILY [facility] Last Admin: 07/26/16 08:35 Dose: 81 mg Atorvastatin Calcium (Lipitor*) 80 mg PO 1700 [facility] Last Admin: 07/25/16 17:47 Dose: 80 mg Brimonidine Tartrate (Alphagan P 0.1% (Nf)) 1 drop LEFT EYE BID [facility] Last Admin: 07/26/16 08:35 Dose: 1 juarez Captopril (Capoten Tab*) 6.25 mg PO TID [facility] Clopidogrel Bisulfate (Plavix Tab*) 75 mg PO DAILY [facility] Last Admin: 07/26/16 08:34 Dose: 75 mg Fentanyl Citrate (Fentanyl*) 25 mcg IV SLOW PU Q1H PRN PRN Reason: dyspnea, pain Last Admin: 07/26/16 03:52 Dose: 25 mcg Furosemide (Lasix Iv*) 40 mg IV DAILY [facility] Haloperidol (Haldol Tab*) 0.5 mg PO Q4H PRN PRN Reason: AGITATION - SEVERE Haloperidol Lactate (Haldol Inj Iv/Im*) 1 mg IV SLOW PU Q1H PRN PRN Reason: AGITATION Last Admin: 07/26/16 03:52 Dose: 1 mg Heparin Sodium (Porcine) (Heparin Vial(*)) 0 units IV .PER PROTOCOL [facility] PRN Reason: Protocol Last Admin: 07/24/16 22:30 Dose: 5,100 units Heparin Sodium/Dextrose (Heparin Drip 25,000 Units(*)) 25,000 units in 500 mls @ 0 mls/hr IVPB .PER RATE [facility]; Per Protocol PRN Reason: Protocol Last Admin: 07/25/16 22:37 Dose: 20 mls/hr Ceftriaxone Sodium 1,000 mg/ (Sodium Chloride) 50 mls @ 200 mls/hr IVPB Q24H [facility] Last Admin: 07/26/16 02:12 Dose: 200 mls/hr Magnesium Sulfate (Magnesium Sulfate 2 Gm Iv*) 2 gm in 50 mls @ 50 mls/hr IVPB ONCE ONE Stop: 07/26/16 09:31 Isosorbide Dinitrate (Isordil Tab*) 10 mg PO TID SLIM Objective Vital Signs: Temp Pulse Resp BP Pulse Ox 99.1 F 87 13 116/52 90 07/26/16 08:00 07/26/16 06:00 07/26/16 06:00 07/26/16 06:00 07/26/16 06:00 Oxygen Devices in Use Now: - - VapoTherm at 40 L/min Appearance: mildly uncomfortable with tachypnea and labor breathing Ears/Nose/Mouth/Throat: Clear Oropharnyx, Mucous Membranes Moist Neck: - - + jvd Respiratory: - - patient with mild tachypnea and increased work of breathing, rales R>L base Cardiovascular: No Edema, - - tachycardic, regular, no significant murmur Abdominal: NL Sounds; No Tenderness; No Distention Extremities: No Edema Skin: No Rash or Ulcers Neurological: - Laboratory Results: 07/26/16 05:50 07/26/16 05:50 INR (Anticoag Therapy) 1.04 (0.89-1.11) 07/24/16 20:16 APTT 54.8 seconds (26.0-36.3) H 07/25/16 23:40 Total Bilirubin 0.70 mg/dL (0.2-1.0) 07/24/16 20:16 AST 28 U/L (13-39) 07/24/16 20:16 ALT 11 U/L (7-52) 07/24/16 20:16 Alkaline Phosphatase 67 U/L (34-104) 07/24/16 20:16 CK-MB (CK-2) 50.8 ng/mL (0.6-6.3) H 07/25/16 12:04 B-Natriuretic Peptide 1234 pg/mL (-100) H 07/26/16 05:50 Total Protein 6.9 g/dL (6.4-8.9) 07/24/16 20:16 Albumin 4.0 g/dL (3.2-5.2) 07/24/16 20:16 Globulin 2.9 g/dL (2-4) 07/24/16 20:16 Albumin/Globulin Ratio 1.4 (1-3) 07/24/16 20:16 Triglycerides 666 mg/dL 07/25/16 04:25 Cholesterol 270 mg/dL 07/25/16 04:25 LDL Cholesterol mg/dL 07/25/16 04:25 HDL Cholesterol 29.9 mg/dL 07/25/16 04:25 07/25/16 07/25/16 07/25/16 01:35 04:25 12:04 Troponin I 2.19 H* 3.52 H* 5.69 H* Diagnostic Imaging: cxr: + pulmonary edema TTE: LVEF 20-25% with multiple WMA, no significant valvular abnormalities note tele: no ventricular arrhythmias ekg 07/25/2016: ST, ischemic anterolateral ST depression Assessment/Plan In summary, Mr. Hernandez is an 86 year old man with baseline memory loss, sees urologist, remote tobacco use and CKD use who presents with ADHF in the setting of an acute [place] and LVEF 20-25%. Course complicated by delirium and urinary retention. - Would continue 02 supplementation and PRN BIPAP - Continue heparin gtt x 48 hours total - Continue aspirin 81 mg PO daily - Continue plavix 75 mg PO daily - Continue statin - d/c nitro gtt and start isordil 10 mg PO TID (ordered) - start captopril 6.25 mg PO TID (ordered) - Continue IV diuresis, keep I/O negative, BMP/Mg and replace lytes as needed - Likely start beta-isidoro soon. I think most of tachycardia was from heart failure and agitation and not extremely low cardiac output. - Prognosis guarded, awaiting conversation with daughter when available - Discussed with Dr. Szymanski. Thank you for allowing me to participate in the cardiovascular care of this patient. Please do not hesitate to contact me with questions or concerns.
[2016-07-26] MEDS: Isosorbide Dinitrate TAB* 10 MG PO SCH ×3 (08:57→21:38)
[2016-07-26] MEDS: Captopril TAB* 12.5 MG PO SCH ×3 (08:57→21:38)
[2016-07-26 09:02] LABS: Calcium 8.2 mg/dL (8.6-10.3); Potassium 3.1 mmol/L (3.5-5.0)
[2016-07-26 11:31] LABS: BUN/Creatinine Ratio 18.3 (8-20)
--- NOTE | 2016-07-26 12:36 | PN ---
Cardiology Progress Note 07/26/2016, Attn coders please do not bill for this encounter Met with daughter Magdalena and signifcant other Preethi. Magdalena states that at baseline he would not know her name. We discussed current attempts to medically stabilize patient, significant delirium interfering with treatment.. Patent is highly unlikely to go back to independent living after this hospitalization. They are going to meet with heating and ventilating worker/manager social media regarding options for post-hospitalization care.
[2016-07-26] MEDS: Potassium Chlor TAB* 20 MEQ TAB.ER PO SCH ×2 (13:40→16:52)
[2016-07-26] MEDS: Furosemide IV* 10 MG/ML 10 ML VIAL (100 MG) IV SCH (13:41)
[2016-07-26] MEDS: Atorvastatin* 80 MG TAB PO SCH (16:52)
[2016-07-26] MEDS ORDERED: Potassium Chlor TAB* 20 MEQ TAB.ER PO ONE ×2 (17:00)
[2016-07-27] MEDS: Heparin DRIP 25,000 UNITS(*) 25,000 UNITS/500 ML BAG IVPB SCH (00:01)
[2016-07-27] MEDS: cefTRIAXone VIAL(*) 1,000 MG in NS 0.9% 50 ML* 50 ML IVPB SCH (02:05)
[2016-07-27] MEDS: Heparin VIAL(*) 5000 UNITS/ML VIAL (FIVE THOUSAND) IV SCH (02:05)
[2016-07-27 06:01] LABS: BUN/Creatinine Ratio 25.7 (8-20); Blood Urea Nitrogen 45 mg/dL (6-24); CO2 Carbon Dioxide 24 mmol/L (22-32); Calcium 7.9 mg/dL (8.6-10.3); Chloride 107 mmol/L (101-111); EGFR African American 47.8 (>60); EGFR Non-African American 37.1 (>60); Glucose 138 mg/dL (70-100); LDL Cholesterol Direct 116 mg/dL; Sodium 140 mmol/L (133-145)
--- NOTE | 2016-07-27 07:54 | PN ---
Subjective Date of Service: 07/27/16 Interval History: Patient offers no c/o. Although he says he is not hungry, nurse reports that he eats well when a tray is put in front of him. Objective Active Medications: Aspirin (Aspirin Low Dose Tab*) 81 mg PO DAILY [facility] Last Admin: 07/26/16 08:35 Dose: 81 mg Atorvastatin Calcium (Lipitor*) 80 mg PO 1700 [facility] Last Admin: 07/26/16 16:52 Dose: 80 mg Brimonidine Tartrate (Alphagan P 0.1% (Nf)) 1 drop LEFT EYE BID [facility] Last Admin: 07/26/16 21:38 Dose: 1 juarez Captopril (Capoten Tab*) 6.25 mg PO TID [facility] Last Admin: 07/26/16 21:38 Dose: 6.25 mg Clopidogrel Bisulfate (Plavix Tab*) 75 mg PO DAILY [facility] Last Admin: 07/26/16 08:34 Dose: 75 mg Fentanyl Citrate (Fentanyl*) 25 mcg IV SLOW PU Q1H PRN PRN Reason: dyspnea, pain Last Admin: 07/26/16 16:41 Dose: 25 mcg Furosemide (Lasix Iv*) 40 mg IV DAILY [facility] Last Admin: 07/26/16 13:41 Dose: 40 mg Haloperidol (Haldol Tab*) 0.5 mg PO Q4H PRN PRN Reason: AGITATION - SEVERE Haloperidol Lactate (Haldol Inj Iv/Im*) 1 mg IV SLOW PU Q1H PRN PRN Reason: AGITATION Last Admin: 07/26/16 16:41 Dose: 1 mg Heparin Sodium (Porcine) (Heparin Vial(*)) 0 units IV .PER PROTOCOL [facility] PRN Reason: Protocol Last Admin: 07/27/16 02:05 Dose: 2,700 units Heparin Sodium/Dextrose (Heparin Drip 25,000 Units(*)) 25,000 units in 500 mls @ 0 mls/hr IVPB .PER RATE [facility]; Per Protocol PRN Reason: Protocol Last Admin: 07/27/16 00:01 Dose: 20 mls/hr Ceftriaxone Sodium 1,000 mg/ (Sodium Chloride) 50 mls @ 200 mls/hr IVPB Q24H [facility] Last Admin: 07/27/16 02:05 Dose: 200 mls/hr Isosorbide Dinitrate (Isordil Tab*) 10 mg PO TID [facility] Last Admin: 07/26/16 21:38 Dose: 10 mg Potassium Chloride (Klor Con Er Tab*) 20 meq PO ONCE ONE Stop: 07/27/16 08:01 Vital Signs 07/26/16 07/26/16 07/26/16 08:00 08:01 09:00 Temperature 99.1 F Pulse Rate 48 102 89 Respiratory 23 26 13 Rate Blood Pressure 144/64 134/79 (mmHg) O2 Sat by Pulse 80 88 96 Oximetry 07/26/16 07/26/16 07/26/16 10:00 11:00 12:00 Temperature 99.2 F Pulse Rate 80 104 83 Respiratory 17 18 16 Rate Blood Pressure 106/49 104/60 (mmHg) O2 Sat by Pulse 97 87 99 Oximetry 07/26/16 07/26/16 07/26/16 13:00 14:00 15:00 Temperature Pulse Rate 87 114 81 Respiratory 16 21 16 Rate Blood Pressure 111/55 146/82 101/47 (mmHg) O2 Sat by Pulse 95 96 97 Oximetry 07/26/16 07/26/16 07/26/16 16:00 16:41 17:00 Temperature Pulse Rate 93 96 Respiratory 19 21 21 Rate Blood Pressure 120/72 114/62 (mmHg) O2 Sat by Pulse 97 89 Oximetry 07/26/16 07/26/16 07/26/16 18:00 19:00 20:00 Temperature 99.3 F Pulse Rate 108 90 93 Respiratory 20 17 18 Rate Blood Pressure 135/70 113/53 129/53 (mmHg) O2 Sat by Pulse 89 94 97 Oximetry 07/26/16 07/26/16 07/26/16 21:00 21:14 22:00 Temperature Pulse Rate 104 91 Respiratory 20 25 21 Rate Blood Pressure 135/67 115/63 (mmHg) O2 Sat by Pulse 93 92 Oximetry 07/26/16 07/26/16 07/27/16 23:00 23:52 00:00 Temperature 99.2 F Pulse Rate 82 83 Respiratory 17 17 Rate Blood Pressure 109/51 (mmHg) O2 Sat by Pulse 94 99 Oximetry 07/27/16 07/27/16 07/27/16 00:01 00:15 01:00 Temperature Pulse Rate 84 101 101 Respiratory 16 23 21 Rate Blood Pressure 114/60 121/79 (mmHg) O2 Sat by Pulse 99 100 92 Oximetry 07/27/16 07/27/16 07/27/16 02:00 02:59 03:00 Temperature Pulse Rate 82 101 Respiratory 15 17 15 Rate Blood Pressure 120/60 125/71 (mmHg) O2 Sat by Pulse 98 93 Oximetry 07/27/16 07/27/16 07/27/16 03:24 03:59 04:00 Temperature 98.4 F Pulse Rate 84 Respiratory 15 13 Rate Blood Pressure 124/58 (mmHg) O2 Sat by Pulse 99 Oximetry 07/27/16 07/27/16 07/27/16 05:00 05:53 07:39 Temperature 97.9 F Pulse Rate 94 Respiratory 15 15 Rate Blood Pressure 124/67 (mmHg) O2 Sat by Pulse 89 Oximetry Oxygen Devices in Use Now: - - Vapotherm 100% O2, 40 L/min Appearance: Alert but lethargic, partly up on ICU bed. Neutral affect. Looks comfortable. Eyes: No Scleral Icterus Neck: NL Appearance and Movements; NL JVP, No Thyroid Enlargement, Masses Respiratory: Symmetrical Chest Expansion and Respiratory Effort, Clear to Auscultation, Clear to Percussion Cardiovascular: NL Sounds; No Murmurs; No JVD, No Edema, - - irreg Extremities: No Edema, No Clubbing, Cyanosis, - Skin: No Rash or Ulcers, No Nodules or Sclerosis, - Neurological: NL Sensation - Disoriented. Passive. No tremor. Moves all limbs. Result Diagrams: 07/26/16 05:50 07/27/16 06:15 Microbiology and Other Data: Microbiology 07/25/16 06:05 Legionella Urinary Antigen - Final Urine Negative Legionella Streptococcus pneumoniae Ag Screen - Final Negative S. pneumo Antigen Assess/Plan/Problems-Billing Assessment: - Patient Problems (1) ACS (acute coronary syndrome) Current Visit: Yes Status: Acute Code(s): I24.9 - ACUTE ISCHEMIC HEART DISEASE, UNSPECIFIED SNOMED Code(s): 781873149 Comment: ASA, statin, NTG drip, morphine ordered. His creatinine and BUN antonio with diuresis. BNP for 07/26 pending. Prognosis is poor with severe cardiomyopathy, EDNA, advanced dementia. He has completed 48 hrs IV heparin. (2) Dementia Current Visit: Yes Status: Acute Code(s): F03.90 - UNSPECIFIED DEMENTIA WITHOUT BEHAVIORAL DISTURBANCE SNOMED Code(s): 82095045 Comment: Long hx progressive memory loss, confusion, worse since admission. Cannot r/o some degree of delirium. Haloperidol prn severe agitation. Morphine may help with milder sx's. Improvement as of 07/27 in terms of less agitation. I spoke with family 07/26 and they have decided on DNR. (3) Glaucoma Current Visit: Yes Status: Acute Code(s): H40.9 - UNSPECIFIED GLAUCOMA SNOMED Code(s): 11722049 Comment: Continue brimonidine. (4) CKD (chronic kidney disease) stage 5, GFR less than 15 ml/min Current Visit: Yes Status: Acute Code(s): N18.5 - CHRONIC KIDNEY DISEASE, STAGE 5 SNOMED Code(s): 083599764 (5) CKD (chronic kidney disease) Current Visit: Yes Status: Acute Code(s): N18.9 - CHRONIC KIDNEY DISEASE, UNSPECIFIED SNOMED Code(s): 070494596 Comment: Stable.
[2016-07-27] MEDS ORDERED: Potassium Chlor TAB* 20 MEQ TAB.ER PO ONE (08:00)
[2016-07-27] MEDS ORDERED: Furosemide IV* 10 MG/ML VIAL (40 MG) IV ONE ×2 (08:43→16:00)
--- NOTE | 2016-07-27 08:48 | PN ---
Subjective Date of Service: 07/27/16 Interval History: f/u [place], CHF Diuresing some, creatinine stable denies any CP or dyspnea but appears subjectively dyspneic Attention better today but oriented x 0, follows commands pulled at daniels, some hematuria tele: no arrhythmias Medications Active Medications: Aspirin (Aspirin Low Dose Tab*) 81 mg PO DAILY [facility] Last Admin: 07/26/16 08:35 Dose: 81 mg Atorvastatin Calcium (Lipitor*) 80 mg PO 1700 [facility] Last Admin: 07/26/16 16:52 Dose: 80 mg Brimonidine Tartrate (Alphagan P 0.1% (Nf)) 1 drop LEFT EYE BID [facility] Last Admin: 07/26/16 21:38 Dose: 1 juarez Clopidogrel Bisulfate (Plavix Tab*) 75 mg PO DAILY [facility] Last Admin: 07/26/16 08:34 Dose: 75 mg Enalapril Maleate (Vasotec Tab*) 2.5 mg PO BID [facility] Fentanyl Citrate (Fentanyl*) 25 mcg IV SLOW PU Q1H PRN PRN Reason: dyspnea, pain Last Admin: 07/26/16 16:41 Dose: 25 mcg Furosemide (Lasix Iv*) 40 mg IV DAILY [facility] Last Admin: 07/26/16 13:41 Dose: 40 mg Furosemide (Lasix Iv*) 80 mg IV ONCE ONE Stop: 07/27/16 08:44 Haloperidol (Haldol Tab*) 0.5 mg PO Q4H PRN PRN Reason: AGITATION - SEVERE Haloperidol Lactate (Haldol Inj Iv/Im*) 1 mg IV SLOW PU Q1H PRN PRN Reason: AGITATION Last Admin: 07/26/16 16:41 Dose: 1 mg Heparin Sodium (Porcine) (Heparin Vial(*)) 5,000 units SUBCUT Q8HR [facility] Ceftriaxone Sodium 1,000 mg/ (Sodium Chloride) 50 mls @ 200 mls/hr IVPB Q24H [facility] Last Admin: 07/27/16 02:05 Dose: 200 mls/hr Objective Vital Signs: Temp Pulse Resp BP Pulse Ox 97.9 F 94 15 124/67 96 07/27/16 07:39 07/27/16 05:00 07/27/16 05:53 07/27/16 05:00 07/27/16 08:29 Oxygen Devices in Use Now: - - Vapotherm 100% O2, 40 L/min Appearance: mildly uncomfortable with tachypnea and labor breathing Ears/Nose/Mouth/Throat: Clear Oropharnyx, Mucous Membranes Moist Neck: - - + jvd Respiratory: - - patient with mild tachypnea and increased work of breathing, rales R>L base Cardiovascular: No Edema, - - tachycardic, regular, no significant murmur Abdominal: NL Sounds; No Tenderness; No Distention Extremities: No Edema Skin: No Rash or Ulcers Neurological: - Laboratory Results: 07/26/16 05:50 07/27/16 06:15 INR (Anticoag Therapy) 1.04 (0.89-1.11) 07/24/16 20:16 APTT 49.1 seconds (26.0-36.3) H 07/27/16 00:03 Total Bilirubin 0.70 mg/dL (0.2-1.0) 07/24/16 20:16 AST 28 U/L (13-39) 07/24/16 20:16 ALT 11 U/L (7-52) 07/24/16 20:16 Alkaline Phosphatase 67 U/L (34-104) 07/24/16 20:16 CK-MB (CK-2) 6.1 ng/mL (0.6-6.3) 07/27/16 05:24 B-Natriuretic Peptide 1234 pg/mL (-100) H 07/26/16 05:50 Total Protein 6.9 g/dL (6.4-8.9) 07/24/16 20:16 Albumin 4.0 g/dL (3.2-5.2) 07/24/16 20:16 Globulin 2.9 g/dL (2-4) 07/24/16 20:16 Albumin/Globulin Ratio 1.4 (1-3) 07/24/16 20:16 Triglycerides 666 mg/dL 07/25/16 04:25 Cholesterol 270 mg/dL 07/25/16 04:25 LDL Cholesterol mg/dL 07/25/16 04:25 HDL Cholesterol 29.9 mg/dL 07/25/16 04:25 07/25/16 07/25/16 07/25/16 01:35 04:25 12:04 Troponin I 2.19 H* 3.52 H* 5.69 H* 01/22/17 05:24 Troponin I 4.10 H* Diagnostic Imaging: cxr: + pulmonary edema TTE: LVEF 20-25% with multiple WMA, no significant valvular abnormalities note tele: no ventricular arrhythmias ekg 07/25/2016: ST, ischemic anterolateral ST depression Assessment/Plan In summary, Mr. Hernandez is an 86 year old man with baseline dementia would not know daughters name, prostate issues, remote tobacco use and CKD use who presents with ADHF in the setting of an acute [place] and LVEF 20-25%, cTnI peak ~ 5. Course complicated by delirium and urinary retention now with daniels catheter - Would continue 02 supplementation and PRN BIPAP - d/c heparin gtt, needs dvt prophylaxis - Continue aspirin 81 mg PO daily - Continue plavix 75 mg PO daily - Continue statin - d/c isordil (ordered) - change captopril 6.25 mg PO TID to enalapril 2.5 mg PO BID (ordered) - Start coreg 3.125 mg PO BID (ordered) - Continue IV diuresis, give IV lasix 80 mg x 1 now with K+ supplement, keep I/ O negative, BMP/Mg and replace lytes as needed - Prognosis guarded Thank you for allowing me to participate in the cardiovascular care of this patient. Please do not hesitate to contact me with questions or concerns.
[2016-07-27] MEDS: Potassium Chlor TAB* 20 MEQ TAB.ER PO SCH ×2 (09:02→12:04)
[2016-07-27] MEDS: Aspirin Low Dose CHEW TAB* 81 MG PO SCH (09:15)
[2016-07-27] MEDS: Enalapril TAB* 5 MG PO SCH (09:16)
[2016-07-27] MEDS: Clopidogrel TAB* 75 MG PO SCH (09:16)
[2016-07-27] MEDS: Carvedilol TAB* 3.125 MG PO SCH (09:16)
[2016-07-27] MEDS: PTO: Brimonidine P 0.1%(NF) 1 DROP BTL LEFT EYE SCH (09:17)
[2016-07-27 12:56] LABS: Calcium 6.3 mg/dL (8.6-10.3); EGFR African American 70.4 (>60); EGFR Non-African American 54.8 (>60); Potassium 2.9 mmol/L (3.5-5.0)
[2016-07-27] MEDS: Heparin VIAL(*) 5000 UNITS/ML VIAL (FIVE THOUSAND) SUBCUT SCH (15:18)
[2016-07-27] MEDS: Atorvastatin* 80 MG TAB PO SCH (16:19)
[2016-07-28] MEDS: Enalapril TAB* 5 MG PO SCH ×3 (00:38→20:57)
[2016-07-28] MEDS: Carvedilol TAB* 3.125 MG PO SCH ×3 (00:38→20:58)
[2016-07-28] MEDS: PTO: Brimonidine P 0.1%(NF) 1 DROP BTL LEFT EYE SCH ×3 (00:39→21:02)
[2016-07-28] MEDS: Heparin VIAL(*) 5000 UNITS/ML VIAL (FIVE THOUSAND) SUBCUT SCH ×4 (00:39→22:37)
[2016-07-28 01:45] LABS: Calcium 8.7 mg/dL (8.6-10.3); EGFR African American 42.9 (>60); EGFR Non-African American 33.4 (>60); Magnesium 2.3 mg/dL (1.9-2.7)
[2016-07-28] MEDS: cefTRIAXone VIAL(*) 1,000 MG in NS 0.9% 50 ML* 50 ML IVPB SCH (02:08)
[2016-07-28 06:04] LABS: Hematocrit 38 % (42-52); Hemoglobin 12.4 g/dl (14.0-18.0); Mean Corpuscular HGB Conc 33 g/dl (31-36); Mean Corpuscular Hemoglobin 27 pg (27-31); Mean Corpuscular Volume 82 fL (80-94); Mean Platelet Volume 9 um3 (7.4-10.4); Red Blood Count 4.61 10^6/ul (4.0-5.4); Red Cell Distribution Width 15 % (10.5-15); White Blood Count 11.7 10^3/ul (3.5-10.8)
[2016-07-28 06:19] LABS: BUN/Creatinine Ratio 26.1 (8-20); Calcium 8.8 mg/dL (8.6-10.3); EGFR African American 40.2 (>60); EGFR Non-African American 31.3 (>60); Magnesium 2.4 mg/dL (1.9-2.7)
--- NOTE | 2016-07-28 08:25 | PN ---
Subjective Date of Service: 07/28/16 Interval History: He offers no c/o. Objective Active Medications: Aspirin (Aspirin Low Dose Tab*) 81 mg PO DAILY [facility] Last Admin: 07/27/16 09:15 Dose: 81 mg Atorvastatin Calcium (Lipitor*) 80 mg PO 1700 [facility] Last Admin: 07/27/16 16:19 Dose: 80 mg Brimonidine Tartrate (Alphagan P 0.1% (Nf)) 1 drop LEFT EYE BID [facility] Last Admin: 07/28/16 00:39 Dose: 1 juarez Carvedilol (Coreg Tab*) 3.125 mg PO BID [facility] Last Admin: 07/28/16 00:38 Dose: 3.125 mg Clopidogrel Bisulfate (Plavix Tab*) 75 mg PO DAILY [facility] Last Admin: 07/27/16 09:16 Dose: 75 mg Enalapril Maleate (Vasotec Tab*) 2.5 mg PO BID [facility] Last Admin: 07/28/16 00:38 Dose: 2.5 mg Fentanyl Citrate (Fentanyl*) 25 mcg IV SLOW PU Q1H PRN PRN Reason: dyspnea, pain Last Admin: 07/26/16 16:41 Dose: 25 mcg Haloperidol (Haldol Tab*) 0.5 mg PO Q4H PRN PRN Reason: AGITATION - SEVERE Haloperidol Lactate (Haldol Inj Iv/Im*) 1 mg IV SLOW PU Q1H PRN PRN Reason: AGITATION Last Admin: 07/26/16 16:41 Dose: 1 mg Heparin Sodium (Porcine) (Heparin Vial(*)) 5,000 units SUBCUT Q8HR [facility] Last Admin: 07/28/16 05:46 Dose: 5,000 units Ceftriaxone Sodium 1,000 mg/ (Sodium Chloride) 50 mls @ 200 mls/hr IVPB Q24H [facility] Last Admin: 07/28/16 02:08 Dose: 200 mls/hr Isosorbide Mononitrate (Imdur Er Tab*) 30 mg PO DAILY [facility] Vital Signs 07/27/16 07/27/16 07/27/16 08:29 09:00 10:00 Temperature Pulse Rate 103 109 Respiratory 18 20 Rate Blood Pressure 158/73 137/59 (mmHg) O2 Sat by Pulse 96 90 93 Oximetry 07/27/16 07/27/16 07/27/16 11:00 11:09 11:58 Temperature 98.9 F Pulse Rate 99 Respiratory 20 Rate Blood Pressure 144/82 (mmHg) O2 Sat by Pulse 96 93 Oximetry 07/27/16 07/27/16 07/27/16 12:00 12:09 13:00 Temperature Pulse Rate 98 88 Respiratory 20 23 20 Rate Blood Pressure (mmHg) O2 Sat by Pulse 88 93 Oximetry 07/27/16 07/27/16 07/27/16 14:00 14:08 15:00 Temperature Pulse Rate 91 87 88 Respiratory 21 21 19 Rate Blood Pressure 120/93 124/63 (mmHg) O2 Sat by Pulse 97 96 95 Oximetry 07/27/16 07/27/16 07/27/16 15:44 16:00 17:00 Temperature 99.8 F Pulse Rate 87 89 Respiratory 15 18 Rate Blood Pressure 120/68 129/67 (mmHg) O2 Sat by Pulse 90 92 Oximetry 07/27/16 07/27/16 07/27/16 18:00 19:00 20:00 Temperature 100.2 F Pulse Rate 87 90 88 Respiratory 18 23 12 Rate Blood Pressure 144/79 126/68 123/53 (mmHg) O2 Sat by Pulse 84 91 95 Oximetry 07/27/16 07/27/16 07/27/16 21:00 22:00 23:00 Temperature Pulse Rate 88 82 85 Respiratory 18 17 17 Rate Blood Pressure 127/57 158/80 123/78 (mmHg) O2 Sat by Pulse 94 97 92 Oximetry 07/27/16 07/27/16 07/28/16 23:40 23:51 00:00 Temperature 99.6 F Pulse Rate 80 91 Respiratory 17 18 Rate Blood Pressure (mmHg) O2 Sat by Pulse 91 85 Oximetry 07/28/16 07/28/16 07/28/16 00:01 01:00 02:00 Temperature Pulse Rate 91 79 76 Respiratory 19 15 15 Rate Blood Pressure 117/95 117/57 102/61 (mmHg) O2 Sat by Pulse 81 98 98 Oximetry 07/28/16 07/28/16 07/28/16 03:00 03:49 04:00 Temperature 98.1 F Pulse Rate 74 74 Respiratory 15 15 16 Rate Blood Pressure 108/84 110/58 (mmHg) O2 Sat by Pulse 96 99 Oximetry 07/28/16 07/28/16 07/28/16 05:00 05:19 05:39 Temperature Pulse Rate 72 72 Respiratory 15 13 Rate Blood Pressure 113/59 (mmHg) O2 Sat by Pulse 91 91 91 Oximetry 07/28/16 07/28/16 07/28/16 06:00 07:00 07:50 Temperature 98.0 F Pulse Rate 68 71 Respiratory 12 17 Rate Blood Pressure 113/55 122/70 (mmHg) O2 Sat by Pulse 89 96 Oximetry 07/28/16 07/28/16 08:00 08:14 Temperature Pulse Rate 69 Respiratory 13 Rate Blood Pressure 121/49 (mmHg) O2 Sat by Pulse 100 95 Oximetry Oxygen Devices in Use Now: - - Vapotherm 100% O2, 40 L/min Appearance: Alert, partly up on ICU bed. Passive, neutral affect. Looks comfortable. Eyes: No Scleral Icterus Ears/Nose/Mouth/Throat: Clear Oropharnyx, Mucous Membranes Moist Neck: NL Appearance and Movements; NL JVP, No Thyroid Enlargement, Masses Respiratory: Symmetrical Chest Expansion and Respiratory Effort, Clear to Auscultation, Clear to Percussion Cardiovascular: No Edema - irreg. distant heart sounds Extremities: No Edema, No Clubbing, Cyanosis, - Skin: No Rash or Ulcers, No Nodules or Sclerosis, - Neurological: NL Sensation - Disoriented. He couldn't offer a guess as to his age, doesn't know where he is. Result Diagrams: 07/28/16 05:17 07/28/16 05:17 Microbiology and Other Data: Microbiology 07/25/16 06:05 Legionella Urinary Antigen - Final Urine Negative Legionella Streptococcus pneumoniae Ag Screen - Final Negative S. pneumo Antigen Assess/Plan/Problems-Billing Assessment: - Patient Problems (1) ACS (acute coronary syndrome) Current Visit: Yes Status: Acute Code(s): I24.9 - ACUTE ISCHEMIC HEART DISEASE, UNSPECIFIED SNOMED Code(s): 464851413 Comment: ASA, statin, NTG drip, morphine ordered. His creatinine and BUN antonio with diuresis. BNP for 07/28 pending. Prognosis is poor with severe cardiomyopathy, EDNA, advanced dementia. He has completed 48 hrs IV heparin. (2) Dementia Current Visit: Yes Status: Acute Code(s): F03.90 - UNSPECIFIED DEMENTIA WITHOUT BEHAVIORAL DISTURBANCE SNOMED Code(s): 83236094 Comment: Long hx progressive memory loss, confusion, worse since admission. Cannot r/o some degree of delirium. Haloperidol prn severe agitation. Morphine may help with milder sx's. Improvement as of 07/27 in terms of less agitation. I spoke with family 07/26 and they have decided on DNR. (3) Glaucoma Current Visit: Yes Status: Acute Code(s): H40.9 - UNSPECIFIED GLAUCOMA SNOMED Code(s): 13677742 Comment: Continue brimonidine. (4) CKD (chronic kidney disease) Current Visit: Yes Status: Acute Code(s): N18.9 - CHRONIC KIDNEY DISEASE, UNSPECIFIED SNOMED Code(s): 284369099 Comment: Slowly increasing creatinine. Stop furosemide, last dose was 07/27. Daily BMP.
[2016-07-28] MEDS: Isosorbide Mononitrate ER TAB* 30 MG PO SCH (09:29)
[2016-07-28] MEDS: Aspirin Low Dose CHEW TAB* 81 MG PO SCH (09:29)
[2016-07-28] MEDS: Clopidogrel TAB* 75 MG PO SCH (09:29)
[2016-07-28] MEDS: Acetaminophen TAB* 325 MG PO PRN ×2 (14:25→20:58)
--- NOTE | 2016-07-28 16:09 | PN ---
Subjective Date of Service: 07/28/16 Interval History: Addendum to today's progress note. Objective Active Medications: Acetaminophen (Tylenol Tab*) 650 mg PO Q4H PRN PRN Reason: PAIN Last Admin: 07/28/16 14:25 Dose: 650 mg Aspirin (Aspirin Low Dose Tab*) 81 mg PO DAILY [facility] Last Admin: 07/28/16 09:29 Dose: 81 mg Atorvastatin Calcium (Lipitor*) 80 mg PO 1700 [facility] Last Admin: 07/27/16 16:19 Dose: 80 mg Brimonidine Tartrate (Alphagan P 0.1% (Nf)) 1 drop LEFT EYE BID [facility] Last Admin: 07/28/16 09:29 Dose: 1 juarez Carvedilol (Coreg Tab*) 3.125 mg PO BID [facility] Last Admin: 07/28/16 09:29 Dose: 3.125 mg Clopidogrel Bisulfate (Plavix Tab*) 75 mg PO DAILY [facility] Last Admin: 07/28/16 09:29 Dose: 75 mg Enalapril Maleate (Vasotec Tab*) 2.5 mg PO BID [facility] Last Admin: 07/28/16 09:29 Dose: 2.5 mg Fentanyl Citrate (Fentanyl*) 25 mcg IV SLOW PU Q1H PRN PRN Reason: dyspnea, pain Last Admin: 07/26/16 16:41 Dose: 25 mcg Haloperidol (Haldol Tab*) 0.5 mg PO Q4H PRN PRN Reason: AGITATION - SEVERE Haloperidol Lactate (Haldol Inj Iv/Im*) 1 mg IV SLOW PU Q1H PRN PRN Reason: AGITATION Last Admin: 07/26/16 16:41 Dose: 1 mg Heparin Sodium (Porcine) (Heparin Vial(*)) 5,000 units SUBCUT Q8HR [facility] Last Admin: 07/28/16 13:48 Dose: 5,000 units Isosorbide Mononitrate (Imdur Er Tab*) 30 mg PO DAILY [facility] Last Admin: 07/28/16 09:29 Dose: 30 mg Vital Signs 07/27/16 07/27/16 07/27/16 17:00 18:00 19:00 Temperature Pulse Rate 89 87 90 Respiratory 18 18 23 Rate Blood Pressure 129/67 144/79 126/68 (mmHg) O2 Sat by Pulse 92 84 91 Oximetry 07/27/16 07/27/16 07/27/16 20:00 21:00 22:00 Temperature 100.2 F Pulse Rate 88 88 82 Respiratory 12 18 17 Rate Blood Pressure 123/53 127/57 158/80 (mmHg) O2 Sat by Pulse 95 94 97 Oximetry 07/27/16 07/27/16 07/27/16 23:00 23:40 23:51 Temperature 99.6 F Pulse Rate 85 80 Respiratory 17 17 Rate Blood Pressure 123/78 (mmHg) O2 Sat by Pulse 92 91 Oximetry 07/28/16 07/28/16 07/28/16 00:00 00:01 01:00 Temperature Pulse Rate 91 91 79 Respiratory 18 19 15 Rate Blood Pressure 117/95 117/57 (mmHg) O2 Sat by Pulse 85 81 98 Oximetry 07/28/16 07/28/16 07/28/16 02:00 03:00 03:49 Temperature Pulse Rate 76 74 Respiratory 15 15 15 Rate Blood Pressure 102/61 108/84 (mmHg) O2 Sat by Pulse 98 96 Oximetry 07/28/16 07/28/16 07/28/16 04:00 05:00 05:19 Temperature 98.1 F Pulse Rate 74 72 72 Respiratory 16 15 13 Rate Blood Pressure 110/58 113/59 (mmHg) O2 Sat by Pulse 99 91 91 Oximetry 07/28/16 07/28/16 07/28/16 05:39 06:00 07:00 Temperature Pulse Rate 68 71 Respiratory 12 17 Rate Blood Pressure 113/55 122/70 (mmHg) O2 Sat by Pulse 91 89 96 Oximetry 07/28/16 07/28/16 07/28/16 07:50 08:00 08:14 Temperature 98.0 F Pulse Rate 69 Respiratory 14 Rate Blood Pressure 121/49 (mmHg) O2 Sat by Pulse 100 95 Oximetry 07/28/16 07/28/16 07/28/16 09:00 10:00 11:00 Temperature Pulse Rate 75 90 84 Respiratory 18 23 18 Rate Blood Pressure 125/101 134/69 115/47 (mmHg) O2 Sat by Pulse 90 94 92 Oximetry 07/28/16 07/28/16 07/28/16 11:47 12:00 13:00 Temperature 98.2 F Pulse Rate 79 78 Respiratory 19 15 Rate Blood Pressure 108/53 106/59 (mmHg) O2 Sat by Pulse 95 99 Oximetry 07/28/16 07/28/16 14:00 15:41 Temperature 97.5 F Pulse Rate 86 Respiratory 17 Rate Blood Pressure (mmHg) O2 Sat by Pulse 95 Oximetry Oxygen Devices in Use Now: - - Vapotherm 100% O2, 40 L/min Result Diagrams: 07/28/16 05:17 07/28/16 05:17 Microbiology and Other Data: Microbiology 07/25/16 06:05 Legionella Urinary Antigen - Final Urine Negative Legionella Streptococcus pneumoniae Ag Screen - Final Negative S. pneumo Antigen Assess/Plan/Problems-Billing Assessment: - Patient Problems (1) Dementia Current Visit: Yes Status: Acute Code(s): F03.90 - UNSPECIFIED DEMENTIA WITHOUT BEHAVIORAL DISTURBANCE SNOMED Code(s): 83544388 Comment: Long hx progressive memory loss, confusion, worse since admission. Cannot r/o some degree of delirium. Haloperidol prn severe agitation. Morphine may help with milder sx's. Improvement as of 07/27 in terms of less agitation. I spoke with family 07/26 and they have decided on DNR. (2) Glaucoma Current Visit: Yes Status: Acute Code(s): H40.9 - UNSPECIFIED GLAUCOMA SNOMED Code(s): 98110305 Comment: Continue brimonidine. (3) CKD (chronic kidney disease) Current Visit: Yes Status: Acute Code(s): N18.9 - CHRONIC KIDNEY DISEASE, UNSPECIFIED SNOMED Code(s): 011865218 Comment: Slowly increasing creatinine. Stop furosemide, last dose was 07/27. Daily BMP. (4) Acute PR Current Visit: Yes Status: Acute Code(s): I21.3 - ST ELEVATION (STEMI) MYOCARDIAL INFARCTION OF [facility] SITE SNOMED Code(s): 87852620 Comment: Non ST elevation PR. ASA, statin, clopidogrel, carvediolol, morphine ordered. He has completed 48 hrs IV heparin. (5) Acute systolic CHF (congestive heart failure) Current Visit: Yes Status: Acute Code(s): I50.21 - ACUTE SYSTOLIC ( CONGESTIVE) HEART FAILURE SNOMED Code(s): 506080840 Comment: LVEF 20-25% on echo 07/24/16. His creatinine and BUN antonio with diuresis. BNP for 07/28 increased significantly. Prognosis is poor with severe cardiomyopathy, EDNA, advanced dementia rising BNP and rising creatinine. (6) Acute and chronic respiratory failure with hypoxia Current Visit: Yes Status: Acute Code(s): J96.21 - ACUTE AND CHRONIC RESPIRATORY FAILURE WITH HYPOXIA SNOMED Code(s): 127583054 Comment: He still desaturates with activity to below 80%, still requires Vapotherm at 40 L/min with 100% O2.
[2016-07-28] MEDS ORDERED: Furosemide IV* 10 MG/ML VIAL (40 MG) IV SLOW PU SCH (17:00)
[2016-07-28] MEDS: Atorvastatin* 80 MG TAB PO SCH (17:15)
[2016-07-28] MEDS: Haloperidol INJ IV/IM* 5 MG/ML AMP IV SLOW PU PRN ×3 (20:00→23:21)
[2016-07-28] MEDS: Potassium Chlor TAB* 20 MEQ TAB.ER PO SCH (21:35)
[2016-07-28] MEDS: Furosemide IV* 10 MG/ML 10 ML VIAL (100 MG) IV SCH (21:35)
[2016-07-28] MEDS: fentaNYL* 50 MCG/ML 2 ML VIAL (100 MCG VIAL) IV SLOW PU PRN (21:53)
[2016-07-29] MEDS: Haloperidol INJ IV/IM* 5 MG/ML AMP IV SLOW PU PRN ×2 (01:07→05:39)
[2016-07-29] MEDS: fentaNYL* 50 MCG/ML 2 ML VIAL (100 MCG VIAL) IV SLOW PU PRN (03:39)
[2016-07-29] MEDS: Heparin VIAL(*) 5000 UNITS/ML VIAL (FIVE THOUSAND) SUBCUT SCH ×3 (05:39→20:40)
[2016-07-29 06:43] LABS: Calcium 8.9 mg/dL (8.6-10.3); EGFR African American 38.9 (>60); EGFR Non-African American 30.3 (>60); Magnesium 2.4 mg/dL (1.9-2.7)
--- NOTE | 2016-07-29 08:03 | PN ---
Subjective Date of Service: 07/29/16 Interval History: Patient offers no c/o. Poor communication skills. Objective Active Medications: Acetaminophen (Tylenol Tab*) 650 mg PO Q4H PRN PRN Reason: PAIN Last Admin: 07/28/16 20:58 Dose: 650 mg Aspirin (Aspirin Low Dose Tab*) 81 mg PO DAILY [facility] Last Admin: 07/28/16 09:29 Dose: 81 mg Atorvastatin Calcium (Lipitor*) 80 mg PO 1700 [facility] Last Admin: 07/28/16 17:15 Dose: 80 mg Brimonidine Tartrate (Alphagan P 0.1% (Nf)) 1 drop LEFT EYE BID [facility] Last Admin: 07/28/16 21:02 Dose: 1 juarez Carvedilol (Coreg Tab*) 3.125 mg PO BID [facility] Last Admin: 07/28/16 20:58 Dose: 3.125 mg Clopidogrel Bisulfate (Plavix Tab*) 75 mg PO DAILY [facility] Last Admin: 07/28/16 09:29 Dose: 75 mg Enalapril Maleate (Vasotec Tab*) 2.5 mg PO BID [facility] Last Admin: 07/28/16 20:57 Dose: 2.5 mg Fentanyl Citrate (Fentanyl*) 25 mcg IV SLOW PU Q1H PRN PRN Reason: dyspnea, pain Last Admin: 07/29/16 03:39 Dose: 25 mcg Haloperidol (Haldol Tab*) 0.5 mg PO Q4H PRN PRN Reason: AGITATION - SEVERE Haloperidol Lactate (Haldol Inj Iv/Im*) 1 mg IV SLOW PU Q1H PRN PRN Reason: AGITATION Last Admin: 07/29/16 05:39 Dose: 1 mg Heparin Sodium (Porcine) (Heparin Vial(*)) 5,000 units SUBCUT Q8HR [facility] Last Admin: 07/29/16 05:39 Dose: 5,000 units Isosorbide Mononitrate (Imdur Er Tab*) 30 mg PO DAILY [facility] Last Admin: 07/28/16 09:29 Dose: 30 mg Vital Signs 07/28/16 07/28/16 07/28/16 08:00 08:14 09:00 Temperature Pulse Rate 69 75 Respiratory 14 18 Rate Blood Pressure 121/49 125/101 (mmHg) O2 Sat by Pulse 100 95 90 Oximetry 07/28/16 07/28/16 07/28/16 10:00 11:00 11:47 Temperature 98.2 F Pulse Rate 90 84 Respiratory 23 18 Rate Blood Pressure 134/69 115/47 (mmHg) O2 Sat by Pulse 94 92 Oximetry 07/28/16 07/28/16 07/28/16 12:00 13:00 14:00 Temperature Pulse Rate 79 78 86 Respiratory 19 15 17 Rate Blood Pressure 108/53 106/59 (mmHg) O2 Sat by Pulse 95 99 95 Oximetry 07/28/16 07/28/16 07/28/16 14:34 14:43 15:00 Temperature Pulse Rate 94 80 Respiratory 19 15 Rate Blood Pressure 112/53 104/46 (mmHg) O2 Sat by Pulse 91 91 Oximetry 07/28/16 07/28/16 07/28/16 15:41 16:00 17:00 Temperature 97.5 F Pulse Rate 81 82 Respiratory 15 15 Rate Blood Pressure 118/52 91/42 (mmHg) O2 Sat by Pulse 95 91 Oximetry 07/28/16 07/28/16 07/28/16 18:00 19:00 19:15 Temperature Pulse Rate 82 77 75 Respiratory 16 12 11 Rate Blood Pressure 120/58 116/45 (mmHg) O2 Sat by Pulse 96 89 90 Oximetry 07/28/16 07/28/16 07/28/16 19:30 19:45 20:00 Temperature 98.7 F Pulse Rate 77 77 87 Respiratory 12 14 25 Rate Blood Pressure 124/105 (mmHg) O2 Sat by Pulse 92 90 87 Oximetry 07/28/16 07/28/16 07/28/16 20:15 20:30 20:45 Temperature Pulse Rate 89 95 58 Respiratory 19 17 17 Rate Blood Pressure (mmHg) O2 Sat by Pulse 91 89 91 Oximetry 07/28/16 07/28/16 07/28/16 21:00 21:15 21:30 Temperature Pulse Rate 90 86 83 Respiratory 16 10 11 Rate Blood Pressure 125/75 (mmHg) O2 Sat by Pulse 89 93 95 Oximetry 07/28/16 07/28/16 07/28/16 21:45 21:53 22:00 Temperature Pulse Rate 79 87 Respiratory 13 14 12 Rate Blood Pressure 104/52 (mmHg) O2 Sat by Pulse 94 96 Oximetry 07/28/16 07/28/16 07/28/16 22:15 22:26 22:30 Temperature Pulse Rate 86 Respiratory 12 11 Rate Blood Pressure 93/48 90/47 81/40 (mmHg) O2 Sat by Pulse 96 98 Oximetry 07/28/16 07/28/16 07/28/16 22:31 22:36 22:45 Temperature Pulse Rate 84 Respiratory 12 11 12 Rate Blood Pressure 82/41 85/50 (mmHg) O2 Sat by Pulse 98 98 97 Oximetry 07/28/16 07/28/16 07/28/16 23:00 23:15 23:21 Temperature Pulse Rate 86 80 84 Respiratory 15 14 14 Rate Blood Pressure 89/33 102/35 (mmHg) O2 Sat by Pulse 99 97 93 Oximetry 07/28/16 07/28/16 07/28/16 23:28 23:30 23:45 Temperature Pulse Rate Respiratory 14 11 14 Rate Blood Pressure (mmHg) O2 Sat by Pulse 92 91 96 Oximetry 07/29/16 07/29/16 07/29/16 00:00 00:15 00:26 Temperature Pulse Rate Respiratory 14 17 14 Rate Blood Pressure (mmHg) O2 Sat by Pulse 96 Oximetry 07/29/16 07/29/16 07/29/16 00:29 00:30 00:45 Temperature 97.2 F Pulse Rate Respiratory 23 Rate Blood Pressure (mmHg) O2 Sat by Pulse 92 96 Oximetry 07/29/16 07/29/16 07/29/16 01:00 01:15 01:30 Temperature Pulse Rate Respiratory 22 21 12 Rate Blood Pressure 113/62 (mmHg) O2 Sat by Pulse 94 94 97 Oximetry 07/29/16 07/29/16 07/29/16 01:45 02:00 02:15 Temperature Pulse Rate Respiratory 24 19 14 Rate Blood Pressure (mmHg) O2 Sat by Pulse 98 94 96 Oximetry 07/29/16 07/29/16 07/29/16 02:30 02:45 03:00 Temperature Pulse Rate Respiratory 21 19 16 Rate Blood Pressure 118/98 (mmHg) O2 Sat by Pulse 100 94 93 Oximetry 07/29/16 07/29/16 07/29/16 03:15 03:30 03:39 Temperature Pulse Rate Respiratory 11 20 12 Rate Blood Pressure (mmHg) O2 Sat by Pulse 93 95 Oximetry 07/29/16 07/29/16 07/29/16 03:45 03:53 04:00 Temperature 98.8 F Pulse Rate Respiratory 11 14 Rate Blood Pressure 110/58 (mmHg) O2 Sat by Pulse 95 89 Oximetry 07/29/16 07/29/16 07/29/16 04:15 04:27 04:30 Temperature Pulse Rate Respiratory 20 14 11 Rate Blood Pressure (mmHg) O2 Sat by Pulse 93 96 Oximetry 07/29/16 07/29/16 07/29/16 04:45 05:00 05:15 Temperature Pulse Rate Respiratory 12 16 14 Rate Blood Pressure 122/52 (mmHg) O2 Sat by Pulse 97 97 98 Oximetry 07/29/16 07/29/16 07/29/16 05:30 05:45 05:57 Temperature Pulse Rate Respiratory 21 17 18 Rate Blood Pressure (mmHg) O2 Sat by Pulse 92 90 Oximetry 07/29/16 06:00 Temperature Pulse Rate Respiratory 13 Rate Blood Pressure 127/48 (mmHg) O2 Sat by Pulse 94 Oximetry Oxygen Devices in Use Now: - Appearance: Lethargic, lying on R side, ignores the examiner. Eyes closed. Neck: NL Appearance and Movements; NL JVP, No Thyroid Enlargement, Masses Respiratory: Symmetrical Chest Expansion and Respiratory Effort, Clear to Auscultation, Clear to Percussion Cardiovascular: NL Sounds; No Murmurs; No JVD, RRR, No Edema, - Extremities: No Edema, No Clubbing, Cyanosis, - Skin: No Rash or Ulcers, No Nodules or Sclerosis, - Neurological: NL Sensation, - - Poor communication skills. No tremor. Passive. Moves all limbs Result Diagrams: 07/28/16 05:17 07/29/16 05:50 Microbiology and Other Data: Microbiology 07/25/16 06:05 Legionella Urinary Antigen - Final Urine Negative Legionella Streptococcus pneumoniae Ag Screen - Final Negative S. pneumo Antigen Assess/Plan/Problems-Billing Assessment: - Patient Problems (1) Dementia Current Visit: Yes Status: Acute Code(s): F03.90 - UNSPECIFIED DEMENTIA WITHOUT BEHAVIORAL DISTURBANCE SNOMED Code(s): 44381697 Comment: Long hx progressive memory loss, confusion, worse since admission. Cannot r/o some degree of delirium. Haloperidol prn severe agitation. Improvement as of 07/27 in terms of less agitation. I spoke with family 07/26 and they have decided on DNR. (2) Glaucoma Current Visit: Yes Status: Acute Code(s): H40.9 - UNSPECIFIED GLAUCOMA SNOMED Code(s): 60012513 Comment: Continue brimonidine. (3) CKD (chronic kidney disease) Current Visit: Yes Status: Acute Code(s): N18.9 - CHRONIC KIDNEY DISEASE, UNSPECIFIED SNOMED Code(s): 273690874 Comment: Slowly increasing creatinine. Off furosemide, last dose was 07/27. BMP 07/30. (4) Acute [place] Current Visit: Yes Status: Acute Code(s): I21.3 - ST ELEVATION (STEMI) MYOCARDIAL INFARCTION OF [facility] SITE SNOMED Code(s): 17801195 Comment: Non ST elevation [place]. ASA, statin, clopidogrel, carvediolol, enalapril ordered. He has completed 48 hrs IV heparin. (5) Acute systolic CHF (congestive heart failure) Current Visit: Yes Status: Acute Code(s): I50.21 - ACUTE SYSTOLIC ( CONGESTIVE) HEART FAILURE SNOMED Code(s): 050855814 Comment: LVEF 20-25% on echo 07/24/16. His creatinine and BUN antonio with diuresis. BNP for 07/28 increased significantly. Prognosis is poor with severe cardiomyopathy, EDNA, advanced dementia rising BNP and rising creatinine. ASA, statin, clopidogrel, carvediolol, enalapril ordered. Repeat BMP, BNP 07/30. (6) Acute and chronic respiratory failure with hypoxia Current Visit: Yes Status: Acute Code(s): J96.21 - ACUTE AND CHRONIC RESPIRATORY FAILURE WITH HYPOXIA SNOMED Code(s): 171890763 Comment: Improved. Vapotherm stopped mid-day 07/28, on [place] at 8 L with O2 sat 94%. Transfer to tele. PT, OT re-ordered.
[2016-07-29] MEDS: Carvedilol TAB* 3.125 MG PO SCH ×2 (09:16→20:40)
[2016-07-29] MEDS: Aspirin Low Dose CHEW TAB* 81 MG PO SCH (09:16)
[2016-07-29] MEDS: Enalapril TAB* 5 MG PO SCH ×2 (09:17→20:39)
[2016-07-29] MEDS: Clopidogrel TAB* 75 MG PO SCH (09:17)
[2016-07-29] MEDS: Isosorbide Mononitrate ER TAB* 30 MG PO SCH (09:17)
[2016-07-29] MEDS: PTO: Brimonidine P 0.1%(NF) 1 DROP BTL LEFT EYE SCH ×2 (09:19→21:38)
[2016-07-29] MEDS: Acetaminophen TAB* 325 MG PO PRN (11:32)
[2016-07-29] MEDS: Atorvastatin* 80 MG TAB PO SCH (16:25)
[2016-07-30] MEDS: Heparin VIAL(*) 5000 UNITS/ML VIAL (FIVE THOUSAND) SUBCUT SCH ×3 (05:15→21:13)
[2016-07-30 05:31] LABS: BUN/Creatinine Ratio 35.8 (8-20); Calcium 8.7 mg/dL (8.6-10.3); EGFR African American 42.7 (>60); EGFR Non-African American 33.2 (>60); Potassium 3.8 mmol/L (3.5-5.0)
[2016-07-30] MEDS: PTO: Brimonidine P 0.1%(NF) 1 DROP BTL LEFT EYE SCH ×2 (08:17→21:14)
[2016-07-30] MEDS: Haloperidol TAB* 0.5 MG PO PRN ×2 (08:18→21:40)
[2016-07-30] MEDS: Carvedilol TAB* 3.125 MG PO SCH ×2 (08:19→21:14)
[2016-07-30] MEDS: Aspirin Low Dose CHEW TAB* 81 MG PO SCH (08:19)
[2016-07-30] MEDS: Isosorbide Mononitrate ER TAB* 30 MG PO SCH (08:19)
[2016-07-30] MEDS: Enalapril TAB* 5 MG PO SCH ×2 (08:20→21:13)
[2016-07-30] MEDS: Clopidogrel TAB* 75 MG PO SCH (09:30)
[2016-07-30] MEDS: Atorvastatin* 80 MG TAB PO SCH (17:34)
--- NOTE | 2016-07-30 18:34 | PN ---
Subjective Date of Service: 07/30/16 Interval History: HOSPITALIST PROGRESS NOTE Patient seen and examined at bedside. He is confused and very [place]. Denies chest pain or dyspnea at this time. Family History: Unchanged from Admission Social History: Unchanged from Admission Past Medical History: Unchanged from Admission Objective Active Medications: Acetaminophen (Tylenol Tab*) 650 mg PO Q4H PRN PRN Reason: PAIN Last Admin: 07/29/16 11:32 Dose: 650 mg Aspirin (Aspirin Low Dose Tab*) 81 mg PO DAILY [facility] Last Admin: 07/30/16 08:19 Dose: 81 mg Atorvastatin Calcium (Lipitor*) 80 mg PO 1700 [facility] Last Admin: 07/30/16 17:34 Dose: 80 mg Brimonidine Tartrate (Alphagan P 0.1% (Nf)) 1 drop LEFT EYE BID [facility] Last Admin: 07/30/16 08:17 Dose: 1 drop Carvedilol (Coreg Tab*) 3.125 mg PO BID [facility] Last Admin: 07/30/16 08:19 Dose: 3.125 mg Clopidogrel Bisulfate (Plavix Tab*) 75 mg PO DAILY [facility] Last Admin: 07/30/16 09:30 Dose: 75 mg Enalapril Maleate (Vasotec Tab*) 2.5 mg PO BID [facility] Last Admin: 07/30/16 08:20 Dose: 2.5 mg Fentanyl Citrate (Fentanyl*) 25 mcg IV SLOW PU Q1H PRN PRN Reason: dyspnea, pain Last Admin: 07/29/16 03:39 Dose: 25 mcg Haloperidol (Haldol Tab*) 0.5 mg PO Q4H PRN PRN Reason: AGITATION - SEVERE Last Admin: 07/30/16 08:18 Dose: 0.5 mg Haloperidol Lactate (Haldol Inj Iv/Im*) 1 mg IV SLOW PU Q1H PRN PRN Reason: AGITATION Last Admin: 07/29/16 05:39 Dose: 1 mg Heparin Sodium (Porcine) (Heparin Vial(*)) 5,000 units SUBCUT Q8HR [facility] Last Admin: 07/30/16 14:05 Dose: 5,000 units Isosorbide Mononitrate (Imdur Er Tab*) 30 mg PO DAILY [facility] Last Admin: 07/30/16 08:19 Dose: 30 mg Vital Signs 07/30/16 07/30/16 07/30/16 08:08 11:29 16:48 Temperature 98.2 F 98.1 F 97.8 F Pulse Rate 77 74 70 Respiratory 18 18 16 Rate Blood Pressure 129/49 109/44 111/36 (mmHg) O2 Sat by Pulse 93 87 96 Oximetry Oxygen Devices in Use Now: Nasal Cannula Appearance: Elderly male sitting up in a recliner in NAD. Eyes: No Scleral Icterus Ears/Nose/Mouth/Throat: Mucous Membranes Moist Neck: Trachea Midline Respiratory: Symmetrical Chest Expansion and Respiratory Effort, Clear to Auscultation Cardiovascular: RRR - Normal S1 and S2 Abdominal: NL Sounds; No Tenderness; No Distention Extremities: No Edema Neurological: - - AAOx2 (self and place), very [place], [place] Lines/Tubes/Other Access: Clean, Dry and Intact Peripheral IV Nutrition: Taking PO's Result Diagrams: 07/28/16 05:17 07/30/16 04:54 Assess/Plan/Problems-Billing Assessment: Mr. Hernandez is an 86yo M with PMH of possible dementia, BPH, remote tobacco abuse , CKD stage 3, who presented to ED with c/o dyspnea, found to have acute systolic CHF exacerbation. - Patient Problems (1) Dementia Comment: - After conversation with daughter and SO, patient has had a long history of progressive memory loss, confusion, worse since admission compatible with delirium. - Haloperidol prn severe agitation. (2) NSTEMI (non-ST elevated myocardial infarction) Comment: - Cardiology input appreciated - continue medical therapy with Aspirin , Plavix, statin and Coreg. (3) Acute systolic CHF (congestive heart failure) Comment: - Echo showed LVEF 20-25% with wall motion abnormalities. - Much improved - creatinine and BUN were trending up with diuresis but now trending back down. - Prognosis is poor with severe cardiomyopathy, CKD, advanced dementia. - Continue to monitor renal function, but will likely resume diuretics in AM. (4) Acute hypoxemic respiratory failure Comment: - Continue supplemental O2. (5) CKD (chronic kidney disease) Comment: - With EDNA on top secondary to diuresis. - Continue to monitor renal function. (6) Urinary retention Comment: - Likely secondary to BPH. - Continue Mendoza for now. - Start Flomax. (7) DVT prophylaxis Comment: - SQ heparin. Status and Disposition: Inpatient. Will likely need SNF placement for rehab.
[2016-07-30] MEDS: Tamsulosin CAP* 0.4 MG PO SCH (21:14)
[2016-07-31] MEDS: Heparin VIAL(*) 5000 UNITS/ML VIAL (FIVE THOUSAND) SUBCUT SCH ×3 (05:16→20:56)
[2016-07-31 05:40] LABS: BUN/Creatinine Ratio 34.8 (8-20); Calcium 8.7 mg/dL (8.6-10.3); EGFR African American 44.2 (>60); EGFR Non-African American 34.4 (>60); Potassium 4.2 mmol/L (3.5-5.0)
[2016-07-31] MEDS: Carvedilol TAB* 3.125 MG PO SCH ×2 (10:26→21:00)
[2016-07-31] MEDS: Clopidogrel TAB* 75 MG PO SCH (10:26)
[2016-07-31] MEDS: Aspirin Low Dose CHEW TAB* 81 MG PO SCH (10:27)
[2016-07-31] MEDS: Enalapril TAB* 5 MG PO SCH ×2 (10:27→20:51)
[2016-07-31] MEDS: Furosemide TAB* 20 MG PO SCH (10:27)
[2016-07-31] MEDS: Isosorbide Mononitrate ER TAB* 30 MG PO SCH (10:27)
[2016-07-31] MEDS: PTO: Brimonidine P 0.1%(NF) 1 DROP BTL LEFT EYE SCH ×2 (13:45→20:54)
[2016-07-31] MEDS: Atorvastatin* 80 MG TAB PO SCH (16:22)
--- NOTE | 2016-07-31 17:15 | PN ---
Subjective Date of Service: 07/31/16 Interval History: HOSPITALIST PROGRESS NOTE Patient seen and examined at bedside. He is pleasantly confused, offers no complaints. Family History: Unchanged from Admission Social History: Unchanged from Admission Past Medical History: Unchanged from Admission Objective Active Medications: Acetaminophen (Tylenol Tab*) 650 mg PO Q4H PRN PRN Reason: PAIN Last Admin: 07/29/16 11:32 Dose: 650 mg Aspirin (Aspirin Low Dose Tab*) 81 mg PO DAILY [facility] Last Admin: 07/31/16 10:27 Dose: 81 mg Atorvastatin Calcium (Lipitor*) 80 mg PO 1700 [facility] Last Admin: 07/31/16 16:22 Dose: 80 mg Brimonidine Tartrate (Alphagan P 0.1% (Nf)) 1 drop LEFT EYE BID [facility] Last Admin: 07/31/16 13:45 Dose: 1 drop Carvedilol (Coreg Tab*) 3.125 mg PO BID [facility] Last Admin: 07/31/16 10:26 Dose: 3.125 mg Clopidogrel Bisulfate (Plavix Tab*) 75 mg PO DAILY [facility] Last Admin: 07/31/16 10:26 Dose: 75 mg Enalapril Maleate (Vasotec Tab*) 2.5 mg PO BID [facility] Last Admin: 07/31/16 10:27 Dose: 2.5 mg Furosemide (Lasix Tab*) 20 mg PO DAILY [facility] Last Admin: 07/31/16 10:27 Dose: 20 mg Haloperidol (Haldol Tab*) 0.5 mg PO Q4H PRN PRN Reason: AGITATION - SEVERE Last Admin: 07/30/16 21:40 Dose: 0.5 mg Haloperidol Lactate (Haldol Inj Iv/Im*) 1 mg IV SLOW PU Q1H PRN PRN Reason: AGITATION Last Admin: 07/29/16 05:39 Dose: 1 mg Heparin Sodium (Porcine) (Heparin Vial(*)) 5,000 units SUBCUT Q8HR [facility] Last Admin: 07/31/16 13:46 Dose: 5,000 units Isosorbide Mononitrate (Imdur Er Tab*) 30 mg PO DAILY [facility] Last Admin: 07/31/16 10:27 Dose: 30 mg Tamsulosin HCl (Flomax Cap*) 0.4 mg PO BEDTIME [facility] Last Admin: 07/30/16 21:14 Dose: 0.4 mg Vital Signs 07/31/16 07/31/16 11:34 15:12 Temperature 98.1 F 98.0 F Pulse Rate 78 77 Respiratory 18 16 Rate Blood Pressure 132/59 132/54 (mmHg) O2 Sat by Pulse 100 97 Oximetry Oxygen Devices in Use Now: Nasal Cannula Appearance: Elderly male sitting up in a chair in NAD. Eyes: No Scleral Icterus Ears/Nose/Mouth/Throat: Mucous Membranes Moist Neck: Trachea Midline Respiratory: Symmetrical Chest Expansion and Respiratory Effort, Clear to Auscultation - decreased in bases Cardiovascular: RRR - Normal S1 and S2 Abdominal: NL Sounds; No Tenderness; No Distention Neurological: - - AAOx1 (self), ORTEGA Lines/Tubes/Other Access: Clean, Dry and Intact Peripheral IV Nutrition: Taking PO's Result Diagrams: 07/28/16 05:17 07/31/16 04:28 Assess/Plan/Problems-Billing Assessment: Mr. Hernandez is an 86yo M with PMH of possible dementia, BPH, remote tobacco abuse , CKD stage 3, who presented to ED with c/o dyspnea, found to have acute systolic CHF exacerbation. - Patient Problems (1) Dementia Comment: - After conversation with daughter and SO, patient has had a long history of progressive memory loss, confusion, worse since admission compatible with delirium. - Haloperidol prn severe agitation. (2) NSTEMI (non-ST elevated myocardial infarction) Comment: - Cardiology input appreciated - continue medical therapy with Aspirin , Plavix, statin and Coreg. (3) Acute systolic CHF (congestive heart failure) Comment: - Echo showed LVEF 20-25% with wall motion abnormalities. - Much improved - creatinine and BUN were trending up with diuresis but now trending back down. - Prognosis is poor with severe cardiomyopathy, CKD, advanced dementia. - Resume diuretics. (4) Acute hypoxemic respiratory failure Comment: - Continue supplemental O2. (5) CKD (chronic kidney disease) Comment: - With EDNA on top secondary to diuresis. - Continue to monitor renal function. (6) Urinary retention Comment: - Likely secondary to BPH. - Continue Mendoza for now and Flomax. (7) DVT prophylaxis Comment: - SQ heparin. Status and Disposition: Inpatient. Anticipate d/c to SNF in AM.
[2016-07-31] MEDS ORDERED: Spironolactone TAB* 25 MG PO ONE (17:24)
[2016-07-31] MEDS: Tamsulosin CAP* 0.4 MG PO SCH (20:52)
[2016-07-31] MEDS: Haloperidol TAB* 0.5 MG PO PRN (20:52)
[2016-08-01] MEDS: Haloperidol INJ IV/IM* 5 MG/ML AMP IV SLOW PU PRN (00:50)
[2016-08-01] MEDS: Heparin VIAL(*) 5000 UNITS/ML VIAL (FIVE THOUSAND) SUBCUT SCH (06:08)
[2016-08-01 07:09] LABS: BUN/Creatinine Ratio 30.4 (8-20); Calcium 9.6 mg/dL (8.6-10.3); EGFR African American 42.4 (>60)
[2016-08-01] MEDS: Carvedilol TAB* 3.125 MG PO SCH (08:35)
[2016-08-01] MEDS: Clopidogrel TAB* 75 MG PO SCH (08:35)
[2016-08-01] MEDS: Enalapril TAB* 5 MG PO SCH (08:35)
[2016-08-01] MEDS: Isosorbide Mononitrate ER TAB* 30 MG PO SCH (08:35)
[2016-08-01] MEDS: Aspirin Low Dose CHEW TAB* 81 MG PO SCH (08:35)
[2016-08-01] MEDS: PTO: Brimonidine P 0.1%(NF) 1 DROP BTL LEFT EYE SCH (08:35)
[2016-08-01] MEDS: Furosemide TAB* 20 MG PO SCH (08:35)
[2016-08-01 08:38] VITALS: BP 116/47
--- NOTE | 2016-08-01 09:01 | DS ---
DATE OF ADMISSION: 07/24/16 DATE OF DISCHARGE: 08/01/16 PRIMARY CARE PROVIDER: Dr. Freddy NORTH PRIMARY CARE PROVIDER: Dr. Kuo CRIMINAL RESEARCHER: Dr. Mitch Osorio DISCHARGED TO: [facility] DISCHARGE DIAGNOSES: 1. [id number]-[id number] myocardial infarction. 2. Acute systolic congestive heart failure exacerbation. 3. Non-sustained V-tach. 4. Delirium. 5. Urinary retention. 6. Mild leukocytosis. 7. Nwqmc-sh-mjtbuhy renal failure. 8. Acute hypoxemia respiratory failure. SECONDARY DIAGNOSES: 1. Benign prostatic hypertrophy, status post TURP. 2. Dementia. 3. Remote history of tobacco abuse. 4. CKD, stage III. MEDICATIONS: 1. Multivitamin one tablet po daily. 2. Alpha-P 0.1% one drop to left eye bid. 3. Preser-Vision one tablet po bid. NEW MEDICATIONS: 1. Tamsulosin 0.4 mg po at bedtime. 2. Imdur 30 mg po daily. 3. Furosemide 20 mg po on Thursday, Thursday, and Thursday. 4. Enalapril 2.5 mg po bid. 5. Clopidogrel 75 mg po daily. 6. Carvedilol 6.25 mg po bid. 7. Atorvastatin 80 mg po daily. 8. Aspirin 81 mg po daily. 9. Acetaminophen 650 mg po q 4 hours prn pain or fever. 10. Oxygen 4 liters via nasal cannula continuously. HOSPITAL COURSE: Mr. Hernandez is an 86-year-old male with a past medical history as stated above who presented to the emergency room on 07/24/16 with complaints of shortness of breath. As per his significant other, the patient had had 2-3 days of progressive shortness of breath that had become severe the day of admission. For more details, I refer you to his history and physical. In the ER, he was found to have initial troponin of 0.83 and his EKG showed some ST depressions from V4 through V6. He was admitted to the telemetry floor under the impression of congestive heart failure. His troponin continued to trend up, and he peaked at 5.6. He was seen in consultation by cardiology (Dr. Mitch Osorio), and his impression was that the patient presented with acute decompensated heart failure in the setting of an acute NH. His course was also complicated by delirium. Initially, the patient required BIPAP to assist with his respiratory failure. He recommended treatment with aspirin, Plavix, diuresis with Furosemide, and initially recommended holding beta blockers. From the start, he felt that the patient's prognosis was guarded. A transthoracic echocardiogram was performed on 07/24/16 and showed mild concentric LVH with severely decreased left ventricular systolic function with an estimated ejection fraction of 20-25% with multiple regional wall motion abnormalities. There was mild to moderate tricuspid regurgitation, moderate pulmonary hypertension. The patient showed improvement of his respiratory status with medical management , and now he requires 4 liters of supplemental O2 via nasal cannula. Although his respiratory status improved, agitation has been a problem throughout. He was found to have urinary retention, had a Mendoza catheter placed. Due to his agitation, he has required Haldol. The impression is likely delirium in the setting of urinary retention, [id number] NH, and prolonged hospital stay. His medications continued to be adjusted and, as he improved, Dr. Osorio also decided to add nitrates, so he is now on Imdur, and to continue diuresis as tolerated. The patient's renal function did increase while on diuretics, but after the medications were stopped his renal function improved again. I explained to his family that his fluid balance is going to be difficult as, with diuretics, his renal function is probably going to get worse; but, without diuretics, his shortness of breath is going to get worse. I believe, at this point, the safest plan of action for this patient is to try Furosemide 3x a week ; but, I think he may require higher doses as an outpatient depending on his respiratory status. The patient had one episode of 11 beats of V-tach while on telemetry, and this was asymptomatic. His beta blockers have been continued. He was felt not to be a candidate for aggressive or invasive therapy. The family agreed with a Do Not Resuscitate, and a MOLST form was filled to that effect; but, they declined palliative care consultation. They were under the impression that "the patient would lose hope if he thinks he is near the end." The family is aware that the patient's prognosis is poor, and I believe further attempts of palliative care intervention should be tried at [facility]. The patient has a history of BPH, and, as per significant other, he has had a very difficult time in the past with Mendoza catheter placement and surgical procedures. At this time, after discussing with the family, I have started Flomax, but I will not remove the Mendoza catheter at this point. He will be discharged with the catheter; and, after 7-10 days of Flomax, if the family agrees, attempts to remove the Mendoza catheter could be tried. But, the family is very clear that they would not want to follow up with Urology as Mendoza catheter insertion in the past has been very traumatic, and they are not interested in surgical procedures either. So, I believe that this may become a chronic Mendoza. The patient seems to be closer to his mental status baseline at this time, especially when his significant other is present. When she has to go home, he can become agitated and has required some doses of Haldol while in the hospital. The patient was found to have PT and OT needs, and family was interested in rehab. A bed was offered at [facility] and the patient was felt to be stable for discharge today. PHYSICAL EXAMINATION: Vital signs - temperature 98.5, heart rate 67, respiratory rate 16, oxygen saturation 96% on 4L nasal cannula, blood pressure 116/51. General - the patient is an elderly male sitting up in a chair in no acute distress. HEENT - pupils are equal, moist mucous membranes. CVS - normal S1, S2. Regular rate and rhythm. Chest - breath sounds are actually decreased but no added sounds. Abodmen - soft, bowel sounds present. Extremities - no edema. Neuro - he is alert, awake and oriented to self only. Able to move all four extremities. DIET: Heart-healthy diet. ACTIVITIES: As tolerated. DISPOSITION: [facility]. STATUS WHILE IN HOSPITAL: Inpatient. Please keep in mind that this is a summarized version of this patient's prolonged hospital stay. If you need more information, please feel to call me at , or please obtain the full medical record. Dr. Kuo was called and updated about the patient's hospital stay. Approximately 55 minutes were spent to complete this discharge. CC: Dr. Kuo; Dr. Mitch Osorio; [facility] * [id number]/[facility] #: [id number] MTDD
--- NOTE | 2016-08-08 22:22 | ED ---
Kenyon Chin Adam, scribed for Kuldip West MD on 07/24/16 at 2041 . Shortness of Breath - HPI Summary HPI Summary: Pt is an 86 year old male presenting with SOB for several days that grew worse tonight. Pt's states that he has been very weak tonight and she saw him hanging onto the wall after getting up to go to the bathroom. Pt denies any fever. He fell recently and injured his shoulder and back. Hx of tobacco use ( quit over 30 years ago). Negative Hx of heart/lung disease, COPD, or KS. - History of Current Complaint Chief Complaint: EDShortnessOfBreath Hx Obtained From: Patient Onset/Duration: Gradual Onset, Lasting Days, Still Present, Worse Since - Tonight Timing: Constant Current Severity: Moderate Dyspnea At: Rest Aggrevating Factors: Movement Alleviating Factors: Nothing - Allergy/Home Medications Allergies/Adverse Reactions: Allergies Allergy/AdvReac Type Severity Reaction Status Date / Time No Known Allergies Allergy Verified 07/26/15 17:15 PMH/Surg Hx/FS Hx/Imm Hx Infectious Disease History: No Infectious Disease History: Denies: Traveled Outside the [place] in Last 30 Days - Family History Known Family History: Positive: None - "Healthy family" Negative: Cardiac Disease - Social History Occupation: Retired Lives: With Family Alcohol Use: None Hx Substance Use: No Substance Use Type: Reports: None Hx Tobacco Use: Yes Smoking Status (MU): Former Smoker - Quit over 30 years ago Review of Systems Constitutional: Negative Negative: Fever Positive: Shortness Of Breath Positive: Arthralgia - Shoulder, Myalgia - Back Positive: Weakness - Generalized All Other Systems Reviewed And Are Negative: Yes Physical Exam - Summary Physical Exam Summary: General: Comfortable, pleasant, alert HEENT: Moist mucosa, HARMEET Neck: Soft, supple, no adenopathy, no edema, no JVD Heart: Regular rhythm, rate is 108, no murmurs, rubs, or gallops Lungs: Tachypneic at 24, evidence of slightly increased work of breathing, fine rales in the right lower lobe. Abdominal: Soft, flat, nontender, no hyperresonance to percussion Extremities: No edema, no calf tenderness, calves are soft, negative Homans Neuro: Alert and oriented x 3 Psych: Logical, coherent Bedside SonoSite Evaluation: E-point septal separation suggests poor ejection fraction. No RV dilation. No pericardial effusion. With inspiration IVC collapses, suggesting dehydration. Triage Information Reviewed: Yes Vital Signs On Initial Exam: Initial Vitals Temp Pulse Resp BP Pulse Ox 98.9 F 109 21 147/78 69 07/24/16 20:08 07/24/16 20:08 07/24/16 20:08 07/24/16 20:08 07/24/16 20:08 Vital Signs Reviewed: Yes Diagnostics - Vital Signs Vital Signs Temp Pulse Resp BP Pulse Ox 07/24/16 20:08 98.9 F 109 21 147/78 69 - Laboratory Lab Results: Lab Results 07/24/16 07/24/16 07/24/16 Range/Units 20:16 20:16 20:16 WBC 12.0 H (3.5-10.8) 10^3/ul RBC 4.65 (4.0-5.4) 10^6/ul Hgb 13.0 L (14.0-18.0) g/dl Hct 39 L (42-52) % MCV 83 (80-94) fL MCH 28 (27-31) pg MCHC 34 (31-36) g/dl RDW 16 H (10.5-15) % Plt Count 303 (150-450) 10^3/ul MPV 9 (7.4-10.4) um3 Neut % (Auto) 69.9 (38-83) % Lymph % (Auto) 21.7 L (25-47) % Mcminn % (Auto) 7.2 (1-9) % Eos % (Auto) 0.4 (0-6) % Baso % (Auto) 0.8 (0-2) % Absolute Neuts (auto) 8.4 H (1.5-7.7) 10^3/ul Absolute Lymphs (auto) 2.6 (1.0-4.8) 10^3/ul Absolute Monos (auto) 0.9 H (0-0.8) 10^3/ul Absolute Eos (auto) 0.1 (0-0.6) 10^3/ul Absolute Basos (auto) 0.1 (0-0.2) 10^3/ul Absolute Nucleated RBC 0.03 10^3/ul Nucleated RBC % 0.2 INR (Anticoag Therapy) (0.89-1.11) APTT (26.0-36.3) seconds Sodium 138 (133-145) mmol/L Potassium 3.7 (3.5-5.0) mmol/L Chloride 107 (101-111) mmol/L Carbon Dioxide 19 L (22-32) mmol/L Anion Gap 12 H (2-11) mmol/L BUN 20 (6-24) mg/dL Creatinine 1.64 H (0.67-1.17) mg/dL Est GFR ( Amer) 51.5 (>60) Est GFR (Non-Af Amer) 40.0 (>60) BUN/Creatinine Ratio 12.2 (8-20) Glucose 191 H (70-100) mg/dL Lactic Acid (0.5-2.0) mmol/L Calcium 9.1 (8.6-10.3) mg/dL Total Bilirubin 0.70 (0.2-1.0) mg/dL AST 28 (13-39) U/L ALT 11 (7-52) U/L Alkaline Phosphatase 67 (34-104) U/L Troponin I 0.83 H* (<0.04) ng/mL B-Natriuretic Peptide 1720 H ( - 100) pg/mL Total Protein 6.9 (6.4-8.9) g/dL Albumin 4.0 (3.2-5.2) g/dL Globulin 2.9 (2-4) g/dL Albumin/Globulin Ratio 1.4 (1-3) Procalcitonin (<0.6) ng/mL 07/24/16 07/24/16 07/24/16 Range/Units 20:16 20:16 21:55 WBC (3.5-10.8) 10^3/ul RBC (4.0-5.4) 10^6/ul Hgb (14.0-18.0) g/dl Hct (42-52) % MCV (80-94) fL MCH (27-31) pg MCHC (31-36) g/dl RDW (10.5-15) % Plt Count (150-450) 10^3/ul MPV (7.4-10.4) um3 Neut % (Auto) (38-83) % Lymph % (Auto) (25-47) % Mcminn % (Auto) (1-9) % Eos % (Auto) (0-6) % Baso % (Auto) (0-2) % Absolute Neuts (auto) (1.5-7.7) 10^3/ul Absolute Lymphs (auto) (1.0-4.8) 10^3/ul Absolute Monos (auto) (0-0.8) 10^3/ul Absolute Eos (auto) (0-0.6) 10^3/ul Absolute Basos (auto) (0-0.2) 10^3/ul Absolute Nucleated RBC 10^3/ul Nucleated RBC % INR (Anticoag Therapy) 1.04 (0.89-1.11) APTT 31.1 (26.0-36.3) seconds Sodium (133-145) mmol/L Potassium (3.5-5.0) mmol/L Chloride (101-111) mmol/L Carbon Dioxide (22-32) mmol/L Anion Gap (2-11) mmol/L BUN (6-24) mg/dL Creatinine (0.67-1.17) mg/dL Est GFR ( Amer) (>60) Est GFR (Non-Af Amer) (>60) BUN/Creatinine Ratio (8-20) Glucose (70-100) mg/dL Lactic Acid 1.6 (0.5-2.0) mmol/L Calcium (8.6-10.3) mg/dL Total Bilirubin (0.2-1.0) mg/dL AST (13-39) U/L ALT (7-52) U/L Alkaline Phosphatase (34-104) U/L Troponin I (<0.04) ng/mL B-Natriuretic Peptide ( - 100) pg/mL Total Protein (6.4-8.9) g/dL Albumin (3.2-5.2) g/dL Globulin (2-4) g/dL Albumin/Globulin Ratio (1-3) Procalcitonin < 0.1 (<0.6) ng/mL Result Diagrams: 07/28/16 05:17 08/01/16 06:24 Lab Statement: Any lab studies that have been ordered have been reviewed, and results considered in the medical decision making process. - Radiology CXR Radiology Interpretation Completed By: Radiologist - IMPRESSION: Right upper lobe and right lower lobe airspace disease consistent with pneumonia. - EKG 20:09 Cardiac Rate: Tachycardia - 114 BPM EKG Rhythm: Sinus Tachycardia EKG Interpretation: ST depressions in anterior lateral leads. This is new from 01/2012. - Additional Comments Diagnostic Additional Comments: Troponin I - 0.83 Course/Dx - Course Assessment/Plan: He has had progressive SOB over the last few days. Today was particularly bad. His EKG shows obvious ST depressions. His troponin is bumped. On unofficial echocardiogram by SonoSite I do detect poor ejection fraction. There are no signs of large PE on SonoSite. There is also some evidence of needing more fluid as he has decreased CVP on SonoSite. At this point with the elevated WBC count, tachycardia, SOB, and cough I believe it is important that we start abx as this may be PNA that precipitated the entire event. However, there is also obvious evidence of cardiac ischemia without STEMI. We will aggressively manage. Currently he is quite stable, alert, and pleasant. - Diagnoses Provider Diagnoses: NSTEMI (non-ST elevated myocardial infarction), Pneumonia - Critical Care Time Critical Care Time: 30-74 min - 60 minutes Discharge - Discharge Plan Condition: Fair Disposition: ADMITTED TO [facility] The documentation as recorded by the Kenyon kline Adam accurately reflects the service I personally performed and the decisions made by me, Kuldip West MD.
== END 2016-08-01 13:00 | DRG 280 ==
LOC: ED 20:02 → MEDTELE 23:29 → ICU 07-25 01:19 → MEDTELE 07-29 07:57
PROVIDERS: ADMIT Internal Medicine; ATTEND Internal Medicine
PROC: 5A09457 Assistance with Respiratory Ventilation, 24-96 Consecutive Hours, Continuous Positive Airway Pressure (ICD-10-PCS; principal; 2016-07-25)
PROC: 0T9B70Z Drainage of Bladder with Drainage Device, Via Natural or Artificial Opening (ICD-10-PCS; 2016-07-26)
DX: I21.4 Non-ST elevation (NSTEMI) myocardial infarction (principal); J96.21 Acute and chronic respiratory failure with hypoxia; N17.9 Acute kidney failure, unspecified; I50.23 Acute on chronic systolic (congestive) heart failure; I47.2 Ventricular tachycardia; N18.3 Chronic kidney disease, stage 3 (moderate); I42.9 Cardiomyopathy, unspecified; F03.90 Unspecified dementia, unspecified severity, without behavioral disturbance, psychotic disturbance, mood disturbance, and anxiety; H40.9 Unspecified glaucoma; N18.9 Chronic kidney disease, unspecified; D72.829 Elevated white blood cell count, unspecified; I27.2 Other secondary pulmonary hypertension; N40.1 Benign prostatic hyperplasia with lower urinary tract symptoms; I07.1 Rheumatic tricuspid insufficiency; R41.0 Disorientation, unspecified; R45.1 Restlessness and agitation; Z66 Do not resuscitate; R33.8 Other retention of urine; Z87.891 Personal history of nicotine dependence; Z79.82 Long term (current) use of aspirin; Z79.02 Long term (current) use of antithrombotics/antiplatelets
CPT/HCPCS: 36415; 71010; 80048; 80053; 80061; 82550; 82553; 83605; 83721; 83735; 83880; 84145; 84484; 85025; 85610; 85730; 87040; 87899; 93005; 93306; 94660; 94760; 96365; 99285; A9270-GY; J0456; J0696; J1630; J1644; J1940; J2270; J2543; J3010; J3475

== ENCOUNTER 2016-08-01 21:54 | Emergency (ER) | payer MEDICARE ==
[2016-08-01 22:02] VITALS: BP 116/33
--- NOTE | 2016-08-01 22:44 | ED ---
Complaint/Male - History of Current Complaint Chief Complaint: EDUrogenitalProblems Time Seen by Provider: 08/01/16 22:03 Hx Obtained From: Family/Logging Shovel Operator, Other: - nursing facility Hx From Patient Unobtainable Due To: Altered Mental Status Onset/Duration: Lasting Hours Timing: Constant Severity Initially: Moderate Severity Currently: Moderate Location: Penis Aggravating Factor(s): Nothing Associated Signs And Symptoms: Hematuria - Allergies/Home Medications Allergies/Adverse Reactions: Allergies Allergy/AdvReac Type Severity Reaction Status Date / Time No Known Allergies Allergy Verified 07/26/15 17:15 PMH/Surg Hx/FS Hx/Imm Hx Previously Healthy: No - patient with dementia, BPH, living at nursing facility Cardiovascular History: Reports: Hx Hypertension History: Reports: Hx Benign Prostatic Hyperplasia Musculoskeletal History: Reports: Hx Arthritis Sensory History: Reports: Hx Contacts or Glasses, Hx Macular Degeneration Opthamlomology History: Reports: Hx Contacts or Glasses, Hx Macular Degeneration Neurological History: Reports: Hx Dementia - advanced - Surgical History Surgery Procedure, Year, and Place: TURP, 02/2012 Hx Anesthesia Reactions: No - Immunization History Hx Pertussis Vaccination: No Immunizations Up to Date: No Infectious Disease History: No Infectious Disease History: Denies: Traveled Outside the [place] in Last 30 Days - Social History Occupation: Retired Lives: At [facility] Alcohol Use: None Substance Use Type: Reports: None Smoking Status (MU): Former Smoker Type: Cigarettes Review Of Systems Constitutional: Positive: Negative Eyes: Positive: Negative Respiratory: Positive: Negative Gastrointestinal: Positive: Negative Genitourinary: Positive: Hematuria Musculoskeletal: Positive: Negative Psychological: Positive: Negative All Other Systems Reviewed And Are Negative: Yes Physical Exam Triage Information Reviewed: Yes Vital Signs On Initial Exam: Initial Vitals Temp Pulse Resp BP Pulse Ox 98.1 F 85 16 116/33 90 08/01/16 21:56 08/01/16 21:56 08/01/16 21:56 08/01/16 21:56 08/01/16 21:56 Vital Signs Reviewed: Yes Appearance: Positive: Ill-Appearing Skin: Positive: Warm, Skin Color Reflects Adequate Perfusion Head/Face: Positive: Normal Head/Face Inspection, Temporal Artery Tenderness Eyes: Positive: EOMI Neck: Positive: Supple Cardiovascular: Positive: Normal Male Genital Exam: Positive: other - daniels catheter placement Musculoskeletal: Positive: Limited @ Neurological: Positive: Speech Normal Psychiatric: Positive: Normal Diagnostics - Vital Signs Vital Signs Temp Pulse Resp BP Pulse Ox 08/01/16 21:56 98.1 F 85 16 116/33 90 - Laboratory Lab Statement: Any lab studies that have been ordered have been reviewed, and results considered in the medical decision making process. Complaint Male Course/Dx - Course Course Of Treatment: bladder scanned. 530 CC's. Nursing facility sent after clot in daniels. Not draining. Arrived to ED with family. Daniels catheter placed. Family resistant to daniels catheter and asking for urology contact. Dr. Solano and Zoya Colon PA-C spoke at length with family. Family will agree to send back to nursing facility tonight with monica YEBOAH awaiting if needed. - Differential Dx/Diagnosis Differential Diagnosis/HQI/PQRI: Cancer, Trauma, Other Provider Diagnoses: Daniels catheter placement
[2016-08-01] MEDS ORDERED: QUEtiapine TAB* 25 MG PO ONE (23:09)
--- NOTE | 2016-09-13 14:53 | PN ---
Progress Note - Progress Note Note: Disposition and condition: Patient with AMS on arrival and at baseline. Patient tolerated daniels catheter placement well and is discharged back to nursing facility. Condition is prostate hypertrophy obstructing flow with urinary retention. Patient here for daniels catheter placement. Daniels catheter placed without issues or trauma.
--- NOTE | 2016-10-01 09:54 | PN ---
Progress Note - Progress Note Note: Disposition: Good Condition: Stable
== END 2016-08-02 00:09 ==
LOC: ED 21:54
DX: R31.9 Hematuria, unspecified (principal); Z86.79 Personal history of other diseases of the circulatory system; F03.90 Unspecified dementia, unspecified severity, without behavioral disturbance, psychotic disturbance, mood disturbance, and anxiety; Z87.891 Personal history of nicotine dependence
CPT/HCPCS: 51702; 99282